=== PATIENT | male | born 1945 | race Caucasian/White ===

== ENCOUNTER → 2020-06-11 08:43 | Outpatient (CLI) | payer MEDICARE, OTHER, SELFPAY ==
[2020-06-11 10:29] LABS: T4 Free Direct 1.53 ng/dL (0.76-1.46); Thyroid Stim Hormone (TSH) 1.25 uIU/mL (0.358-3.74)
== END ==
PROVIDERS: PCP Internal Medicine; Referring Provider Internal Medicine; Visit Provider Internal Medicine
DX: I10 Essential (primary) hypertension (principal); E78.5 Hyperlipidemia, unspecified; E03.9 Hypothyroidism, unspecified; R73.9 Hyperglycemia, unspecified; J44.9 Chronic obstructive pulmonary disease, unspecified; Z13.9 Encounter for screening, unspecified; Z13.31 Encounter for screening for depression
CPT/HCPCS: 36415; 84439; 84443

== ENCOUNTER → 2020-08-12 09:57 | Outpatient (CLI) | payer MEDICARE, OTHER, SELFPAY ==
[2020-08-12 12:49] LABS: T4 Free Direct 1.44 ng/dL (0.76-1.46); Thyroid Stim Hormone (TSH) 2.97 uIU/mL (0.358-3.74)
== END ==
PROVIDERS: PCP Internal Medicine; Referring Provider Internal Medicine; Visit Provider Internal Medicine
DX: E03.9 Hypothyroidism, unspecified (principal)
CPT/HCPCS: 36415; 84439; 84443

== ENCOUNTER → 2020-12-03 07:54 | Outpatient (CLI) | payer MEDICARE, OTHER, SELFPAY ==
[2020-12-03 09:45] LABS: Absolute Lymphocyte Count 2.25 X10^3/uL (0.83-4.51); Absolute Neutrophil Count 3.6 X10^3/uL (2.0-7.7); Basophil# 0.03 X10^3/uL; Basophil% 0.5 % (0-1); Eosinophil# 0.22 X10^3/uL; Eosinophils% 3.3 % (0-5); Hematocrit 45.1 % (40-54); Hemoglobin 15.6 g/dL (13.0-16.5); Lymphocyte # 2.25 X10^3/ul (0.83-4.51); Lymphocyte % 33.8 % (19-41); Mean Corp Hgb Conc 34.6 g/dL (32-36); Mean Corpuscular Hgb 30.3 pg (27.0-32.0); Mean Corpuscular Volume 87.6 fL (80-94); Mean Platelet Vol. 9.3 fl (6.2-12.0); Monocyte# 0.51 X10^3/uL; Monocyte% 7.7 % (0-10); NRBC Flagged by Analyzer 0 % (0-5); Neutrophil # 3.62 X10^3/uL (2.7-7.7); Neutrophil % 54.4 % (47-70); Platelet Count 215 K/mm3 (150-450); RBC Distribution Width SD 38.5 fl (35.1-43.9); Red Blood Count 5.15 M/mm3 (4.6-6.2); White Blood Count 6.7 K/mm3 (4.4-11.0)
[2020-12-03 10:26] LABS: ALB/GLOB Ratio 1.2 RATIO (0.9-2.4); AST(SGOT) 13 U/L (15-37); Alanine Aminotransfer ALT/SGPT 33 U/L (16-61); Albumin, Serum 4.1 g/dL (3.2-5.0); Alkaline Phosphatase 76 U/L (45-117); Anion Gap 9 (5-15); BUN 15 mg/dL (7-18); BUN/Creat Ratio 16.5 RATIO (10-20); Calcium,Total 9.1 mg/dL (8.5-10.1); Chloride 101 mmol/L (98-107); Cholesterol 207 mg/dL (200); Creatinine, Serum 0.91 mg/dL (0.70-1.30); EST Glomerular Filtration Rate 87 mL/min (>60); Est Glom Filt Rate - Afr Amer 105 mL/min (>60); Globulin 3.5 g/dL (2.2-4.2); Glucose 99 mg/dL (74-106); High Density Lipoprotein 46 mg/dL; PSA,Total - Annual Screen 6.12 ng/mL (0.00-4.00); Potassium 3.9 mmol/L (3.5-5.1); Protein, Total 7.6 g/dL (6.4-8.2); Sodium Level 137 mmol/L (136-145); T4 Free Direct 1.19 ng/dL (0.76-1.46); Thyroid Stim Hormone (TSH) 8.29 uIU/mL (0.358-3.74); Triglycerides 184 mg/dL; Uric Acid 7.9 mg/dL (3.5-7.2); Very Low Density Lipoprotein 37 mg/dL (5-40)
[2020-12-03 11:39] LABS: Hemoglobin A1c 5.4 % (3.8-5.6)
== END ==
PROVIDERS: PCP Internal Medicine; Referring Provider Internal Medicine; Visit Provider Internal Medicine
DX: I10 Essential (primary) hypertension (principal); E78.5 Hyperlipidemia, unspecified; E03.9 Hypothyroidism, unspecified; R73.9 Hyperglycemia, unspecified; Z87.39 Personal history of other diseases of the musculoskeletal system and connective tissue; Z12.5 Encounter for screening for malignant neoplasm of prostate
CPT/HCPCS: 36415; 80053; 80061; 83036; 84153; 84439; 84443; 84550; 85025; G0103

== ENCOUNTER → 2021-03-13 09:31 | Outpatient (CLI) | payer MEDICARE, OTHER, SELFPAY ==
[2021-03-13 12:24] LABS: Free T3 2.5 pg/mL (2.18-3.98); PSA,Total- Diagnostic 4.74 ng/mL (0.0-4.0)
[2021-03-13 14:09] LABS: T4 Free Direct 1.11 ng/dL (0.76-1.46)
== END ==
PROVIDERS: PCP Internal Medicine; Referring Provider Internal Medicine; Visit Provider Internal Medicine
DX: E03.9 Hypothyroidism, unspecified (principal); J44.9 Chronic obstructive pulmonary disease, unspecified; I10 Essential (primary) hypertension; F17.200 Nicotine dependence, unspecified, uncomplicated; R73.9 Hyperglycemia, unspecified; E78.5 Hyperlipidemia, unspecified; R97.20 Elevated prostate specific antigen [PSA]; Z87.39 Personal history of other diseases of the musculoskeletal system and connective tissue; Z68.29 Body mass index [BMI] 29.0-29.9, adult; Z71.3 Dietary counseling and surveillance; Z71.82 Exercise counseling; Z13.9 Encounter for screening, unspecified; Z13.31 Encounter for screening for depression
CPT/HCPCS: 36415; 84153; 84439; 84443; 84481

== ENCOUNTER 2021-07-15 08:00 | Outpatient (CLI) | payer MEDICARE, OTHER, SELFPAY ==
[2021-07-15 10:07] LABS: Hematocrit 43.9 % (40-54); Hemoglobin 15.5 g/dL (13.0-16.5); Mean Corp Hgb Conc 35.3 g/dL (32-36); Mean Corpuscular Hgb 30.6 pg (27.0-32.0); Mean Corpuscular Volume 86.8 fL (80-94); Mean Platelet Vol. 9.1 fl (6.2-12.0); Platelet Count 208 K/mm3 (150-450); RBC Distribution Width CV 12.1 % (11.6-14.6); RBC Distribution Width SD 38.5 fl (35.1-43.9); Red Blood Count 5.06 M/mm3 (4.6-6.2)
[2021-07-15 10:33] LABS: AST(SGOT) 17 U/L (15-37); Alanine Aminotransfer ALT/SGPT 39 U/L (16-61); Alkaline Phosphatase 75 U/L (45-117); Anion Gap 10 (5-15); BUN 16 mg/dL (7-18); BUN/Creat Ratio 19.6 RATIO (10-20); Calcium,Total 9.3 mg/dL (8.5-10.1); Chloride 96 mmol/L (98-107); Cholesterol 204 mg/dL (200); Creatinine, Serum 0.82 mg/dL (0.70-1.30); EST Glomerular Filtration Rate 98 mL/min (>60); Est Glom Filt Rate - Afr Amer 118 mL/min (>60); Glucose 102 mg/dL (74-106); High Density Lipoprotein 42 mg/dL; PSA,Total- Diagnostic 4.63 ng/mL (0.0-4.0); Potassium 4.2 mmol/L (3.5-5.1); Sodium Level 136 mmol/L (136-145); T4 Free Direct 1.54 ng/dL (0.76-1.46); Triglycerides 238 mg/dL; Uric Acid 6.7 mg/dL (3.5-7.2); Very Low Density Lipoprotein 48 mg/dL (5-40)
== END 2021-07-15 23:59 | disposition short-term general hospital (02) ==
LOC: MTLAB 08:02
PROVIDERS: PCP Internal Medicine; Referring Provider Internal Medicine; Visit Provider Internal Medicine
DX: I10 Essential (primary) hypertension (principal); E78.5 Hyperlipidemia, unspecified; E03.9 Hypothyroidism, unspecified; R97.20 Elevated prostate specific antigen [PSA]; Z87.39 Personal history of other diseases of the musculoskeletal system and connective tissue
CPT/HCPCS: 36415; 80053; 80061; 84153; 84439; 84443; 84550; 85027

== ENCOUNTER → 2022-03-24 | Outpatient (CLI) | payer MEDICARE, OTHER, SELFPAY ==
[2022-03-24 09:57] LABS: Absolute Lymphocyte Count 1.68 X10^3/uL (0.83-4.51); Absolute Neutrophil Count 3.1 X10^3/uL (2.0-7.7); Basophil# 0.01 X10^3/uL; Basophil% 0.2 % (0-1); Eosinophil# 0.16 X10^3/uL; Eosinophils% 2.9 % (0-5); Hematocrit 44.6 % (40-54); Hemoglobin 15.4 g/dL (13.0-16.5); Lymphocyte # 1.68 X10^3/ul (0.83-4.51); Lymphocyte % 30.8 % (19-41); Mean Corp Hgb Conc 34.5 g/dL (32-36); Mean Corpuscular Hgb 29.8 pg (27.0-32.0); Mean Corpuscular Volume 86.3 fL (80-94); Mean Platelet Vol. 9.3 fl (6.2-12.0); Monocyte# 0.49 X10^3/uL; NRBC Flagged by Analyzer 0 % (0-5); Neutrophil % 56.9 % (47-70); Platelet Count 196 K/mm3 (150-450); RBC Distribution Width CV 11.9 % (11.6-14.6); Red Blood Count 5.17 M/mm3 (4.6-6.2); White Blood Count 5.5 K/mm3 (4.4-11.0)
[2022-03-24 10:14] LABS: Hemoglobin A1c 5.6 % (3.8-5.6)
[2022-03-24 10:33] LABS: ALB/GLOB Ratio 1.1 RATIO (0.9-2.4); AST(SGOT) 10 U/L (15-37); Alanine Aminotransfer ALT/SGPT 25 U/L (16-61); Albumin, Serum 3.8 g/dL (3.2-5.0); Alkaline Phosphatase 75 U/L (45-117); Anion Gap 5 (5-15); BUN 16 mg/dL (7-18); BUN/Creat Ratio 18.8 RATIO (10-20); Calcium,Total 9.2 mg/dL (8.5-10.1); Chloride 103 mmol/L (98-107); Cholesterol 194 mg/dL (200); Creatinine, Serum 0.85 mg/dL (0.70-1.30); EST Glomerular Filtration Rate 93 mL/min (>60); Est Glom Filt Rate - Afr Amer 113 mL/min (>60); Globulin 3.4 g/dL (2.2-4.2); Glucose 108 mg/dL (74-106); High Density Lipoprotein 42 mg/dL; PSA,Total - Annual Screen 3.79 ng/mL (0.00-4.00); Potassium 4.1 mmol/L (3.5-5.1); Protein, Total 7.2 g/dL (6.4-8.2); Sodium Level 137 mmol/L (136-145); T4 Free Direct 1.62 ng/dL (0.76-1.46); Thyroid Stim Hormone (TSH) 0.95 uIU/mL (0.358-3.74); Triglycerides 193 mg/dL; Very Low Density Lipoprotein 39 mg/dL (5-40)
== END | disposition home or self-care (01) ==
LOC: MTLAB 08:22
PROVIDERS: PCP Internal Medicine; Referring Provider Internal Medicine; Visit Provider Internal Medicine
DX: Z00.00 Encounter for general adult medical examination without abnormal findings (principal); J44.9 Chronic obstructive pulmonary disease, unspecified; R10.13 Epigastric pain; R97.20 Elevated prostate specific antigen [PSA]; I10 Essential (primary) hypertension; E78.5 Hyperlipidemia, unspecified; R73.9 Hyperglycemia, unspecified; E03.9 Hypothyroidism, unspecified; Z12.5 Encounter for screening for malignant neoplasm of prostate; Z13.31 Encounter for screening for depression; Z68.29 Body mass index [BMI] 29.0-29.9, adult; Z71.3 Dietary counseling and surveillance; Z71.82 Exercise counseling; Z72.0 Tobacco use
CPT/HCPCS: 36415; 80053; 80061; 83036; 84153; 84439; 84443; 85025; G0103

== ENCOUNTER → 2022-06-02 | Outpatient (CLI) | payer MEDICARE, OTHER, SELFPAY ==
[2022-06-02 15:34] LABS: T4 Free Direct 1.45 ng/dL (0.76-1.46); Thyroid Stim Hormone (TSH) 1.51 uIU/mL (0.358-3.74)
== END | disposition home or self-care (01) ==
LOC: MTLAB 11:09
PROVIDERS: PCP Internal Medicine; Referring Provider Internal Medicine; Visit Provider Internal Medicine
DX: E03.9 Hypothyroidism, unspecified (principal)
CPT/HCPCS: 36415; 84439; 84443

== ENCOUNTER → 2022-09-22 | Outpatient (CLI) | payer MEDICARE, OTHER, SELFPAY ==
[2022-09-22 10:34] LABS: ALB/GLOB Ratio 1.2 RATIO (0.9-2.4); AST(SGOT) 14 U/L (15-37); Alanine Aminotransfer ALT/SGPT 27 U/L (16-61); Alkaline Phosphatase 63 U/L (45-117); Anion Gap 7 (5-15); BUN 18 mg/dL (7-18); BUN/Creat Ratio 18.6 RATIO (10-20); Calcium,Total 9.1 mg/dL (8.5-10.1); Chloride 101 mmol/L (98-107); Cholesterol 217 mg/dL (200); Creatinine, Serum 0.97 mg/dL (0.70-1.30); EST Glomerular Filtration Rate 80 mL/min (>60); Est Glom Filt Rate - Afr Amer 97 mL/min (>60); Globulin 3.2 g/dL (2.2-4.2); Glucose 104 mg/dL (74-106); High Density Lipoprotein 43 mg/dL; Potassium 4.1 mmol/L (3.5-5.1); Protein, Total 7.2 g/dL (6.4-8.2); Sodium Level 137 mmol/L (136-145); T4 Free Direct 1.03 ng/dL (0.76-1.46); Thyroid Stim Hormone (TSH) 8.34 uIU/mL (0.358-3.74); Triglycerides 213 mg/dL; Very Low Density Lipoprotein 43 mg/dL (5-40)
== END | disposition home or self-care (01) ==
LOC: MTLAB 08:41
PROVIDERS: PCP Internal Medicine; Referring Provider Internal Medicine; Visit Provider Internal Medicine
DX: E78.5 Hyperlipidemia, unspecified (principal); E03.9 Hypothyroidism, unspecified
CPT/HCPCS: 36415; 80053; 80061; 84439; 84443

== ENCOUNTER → 2022-12-14 | Outpatient (CLI) | payer MEDICARE, OTHER, SELFPAY ==
[2022-12-14 15:46] LABS: T4 Free Direct 1.28 ng/dL (0.76-1.46); Thyroid Stim Hormone (TSH) 3.76 uIU/mL (0.358-3.74)
== END | disposition home or self-care (01) ==
LOC: MTLAB 13:02
PROVIDERS: PCP Internal Medicine; Referring Provider Internal Medicine; Visit Provider Internal Medicine
DX: E03.9 Hypothyroidism, unspecified (principal)
CPT/HCPCS: 36415; 84439; 84443

== ENCOUNTER → 2023-05-18 | Outpatient (CLI) | payer MEDICARE, OTHER, SELFPAY ==
[2023-05-18 12:45] LABS: Absolute Lymphocyte Count 1.75 X10^3/uL (0.83-4.51); Absolute Neutrophil Count 4.1 X10^3/uL (2.0-7.7); Basophil# 0.03 X10^3/uL; Basophil% 0.5 % (0-1); Eosinophil# 0.18 X10^3/uL; Eosinophils% 2.7 % (0-5); Hematocrit 45.7 % (40-54); Hemoglobin 15.7 g/dL (13.0-16.5); Lymphocyte # 1.75 X10^3/ul (0.83-4.51); Lymphocyte % 26.4 % (19-41); Mean Corp Hgb Conc 34.4 g/dL (32-36); Mean Corpuscular Hgb 30.1 pg (27.0-32.0); Mean Corpuscular Volume 87.7 fL (80-94); Mean Platelet Vol. 9.5 fl (6.2-12.0); Monocyte# 0.56 X10^3/uL; Monocyte% 8.4 % (0-10); NRBC Flagged by Analyzer 0 % (0-5); Neutrophil # 4.09 X10^3/uL (2.7-7.7); Neutrophil % 61.7 % (47-70); Platelet Count 221 K/mm3 (150-450); RBC Distribution Width SD 38.6 fl (35.1-43.9); Red Blood Count 5.21 M/mm3 (4.6-6.2); White Blood Count 6.6 K/mm3 (4.4-11.0)
[2023-05-18 13:35] LABS: ALB/GLOB Ratio 1.2 RATIO (0.9-2.4); AST(SGOT) 18 U/L (15-37); Alanine Aminotransfer ALT/SGPT 39 U/L (16-61); Alkaline Phosphatase 63 U/L (45-117); Anion Gap 7 (5-15); BUN 15 mg/dL (7-18); BUN/Creat Ratio 15.6 RATIO (10-20); Chloride 103 mmol/L (98-107); Cholesterol 221 mg/dL (200); Creatinine, Serum 0.96 mg/dL (0.70-1.30); EST Glomerular Filtration Rate 81 mL/min (>60); Est Glom Filt Rate - Afr Amer 98 mL/min (>60); Globulin 3.4 g/dL (2.2-4.2); Glucose 108 mg/dL (74-106); High Density Lipoprotein 40 mg/dL; Potassium 4.1 mmol/L (3.5-5.1); Protein, Total 7.4 g/dL (6.4-8.2); Sodium Level 139 mmol/L (136-145); Thyroid Stim Hormone (TSH) 1.93 uIU/mL (0.358-3.74); Triglycerides 224 mg/dL; Uric Acid 8.6 mg/dL (3.5-7.2); Very Low Density Lipoprotein 45 mg/dL (5-40)
[2023-05-18 13:36] LABS: Hemoglobin A1c 5.4 % (3.8-5.6)
== END | disposition home or self-care (01) ==
LOC: MTLAB 09:22
PROVIDERS: PCP Internal Medicine; Referring Provider Internal Medicine; Visit Provider Internal Medicine
DX: I10 Essential (primary) hypertension (principal); E78.5 Hyperlipidemia, unspecified; R73.9 Hyperglycemia, unspecified; Z87.39 Personal history of other diseases of the musculoskeletal system and connective tissue
CPT/HCPCS: 36415; 80053; 80061; 83036; 84443; 84550; 85025

== ENCOUNTER → 2024-02-22 | Outpatient (CLI) | payer MEDICARE, SELFPAY ==
[2024-02-22 10:37] LABS: Absolute Lymphocyte Count 1.86 X10^3/uL (0.83-4.51); Absolute Neutrophil Count 4.3 X10^3/uL (2.0-7.7); Basophil# 0.02 X10^3/uL; Basophil% 0.3 % (0-1); Eosinophil# 0.18 X10^3/uL; Eosinophils% 2.6 % (0-5); Hematocrit 44.4 % (40-54); Hemoglobin 15.3 g/dL (13.0-16.5); Lymphocyte # 1.86 X10^3/ul (0.83-4.51); Lymphocyte % 27.2 % (19-41); Mean Corp Hgb Conc 34.5 g/dL (32-36); Mean Corpuscular Hgb 30.3 pg (27.0-32.0); Mean Corpuscular Volume 87.9 fL (80-94); Mean Platelet Vol. 9.3 fl (6.2-12.0); Monocyte# 0.51 X10^3/uL; Monocyte% 7.4 % (0-10); NRBC Flagged by Analyzer 0 % (0-5); Neutrophil # 4.26 X10^3/uL (2.7-7.7); Neutrophil % 62.2 % (47-70); Platelet Count 206 K/mm3 (150-450); RBC Distribution Width CV 12.1 % (11.6-14.6); RBC Distribution Width SD 39.4 fl (35.1-43.9); Red Blood Count 5.05 M/mm3 (4.6-6.2); White Blood Count 6.9 K/mm3 (4.4-11.0)
[2024-02-22 12:42] LABS: ALB/GLOB Ratio 1.1 RATIO (0.9-2.4); AST(SGOT) 16 U/L (15-37); Alanine Aminotransfer ALT/SGPT 30 U/L (16-61); Albumin, Serum 3.7 g/dL (3.2-5.0); Alkaline Phosphatase 70 U/L (45-117); Anion Gap 6 (5-15); BUN 14 mg/dL (7-18); BUN/Creat Ratio 14.4 RATIO (10-20); Calcium,Total 9.1 mg/dL (8.5-10.1); Chloride 103 mmol/L (98-107); Cholesterol 186 mg/dL (200); Creatinine, Serum 0.97 mg/dL (0.70-1.30); EST Glomerular Filtration Rate 80 mL/min (>60); Est Glom Filt Rate - Afr Amer 97 mL/min (>60); Globulin 3.4 g/dL (2.2-4.2); Glucose 91 mg/dL (74-106); High Density Lipoprotein 42 mg/dL; PSA,Total - Annual Screen 5.27 ng/mL (0.00-4.00); Protein, Total 7.1 g/dL (6.4-8.2); Sodium Level 135 mmol/L (136-145); Thyroid Stim Hormone (TSH) 0.805 uIU/mL (0.358-3.740); Triglycerides 139 mg/dL; Very Low Density Lipoprotein 28 mg/dL (5-40)
[2024-02-22 14:09] LABS: Hemoglobin A1c 5.5 % (3.8-5.6)
== END | disposition home or self-care (01) ==
LOC: MTLAB 08:28
PROVIDERS: PCP Internal Medicine; Referring Provider Internal Medicine; Visit Provider Internal Medicine
DX: I10 Essential (primary) hypertension (principal); E78.5 Hyperlipidemia, unspecified; R73.9 Hyperglycemia, unspecified; Z12.5 Encounter for screening for malignant neoplasm of prostate; E03.9 Hypothyroidism, unspecified
CPT/HCPCS: 36415; 80053; 80061; 83036; 84153; 84443; 85025; G0103

== ENCOUNTER → 2024-08-22 | Outpatient (CLI) | payer MEDICARE, SELFPAY ==
[2024-08-22 10:35] LABS: Absolute Lymphocyte Count 1.64 X10^3/uL (0.83-4.51); Absolute Neutrophil Count 4.2 X10^3/uL (2.0-7.7); Basophil# 0.01 X10^3/uL; Basophil% 0.2 % (0-1); Eosinophil# 0.14 X10^3/uL; Eosinophils% 2.2 % (0-5); Glucose, Dipstick Normal (Normal); Hematocrit 45.2 % (40-54); Hemoglobin 15.7 g/dL (13.0-16.5); Ketone-Dipstick Negative (Negative); Leukocyte Esterase-Dipstick 25 /ul (Negative); Lymphocyte # 1.64 X10^3/ul (0.83-4.51); Lymphocyte % 25.3 % (19-41); Mean Corp Hgb Conc 34.7 g/dL (32-36); Mean Corpuscular Hgb 30.7 pg (27.0-32.0); Mean Corpuscular Volume 88.5 fL (80-94); Mean Platelet Vol. 8.8 fl (6.2-12.0); Monocyte# 0.51 X10^3/uL; Monocyte% 7.9 % (0-10); NRBC Flagged by Analyzer 0 % (0-5); Neutrophil # 4.17 X10^3/uL (2.7-7.7); Neutrophil % 64.2 % (47-70); Nitrite-Dipstick Negative (Negative); Occult Blood-Urine 10 /ul (Negative); Platelet Count 228 K/mm3 (150-450); Protein-Dipstick 15 mg/dl (Negative); RBC Distribution Width CV 11.9 % (11.6-14.6); RBC Distribution Width SD 38.5 fl (35.1-43.9); Red Blood Count 5.11 M/mm3 (4.6-6.2); Specific Gravity, Urine 1.015 (1.002-1.030); Urine Bilirubin Dipstick Negative (Negative); Urine Clarity Clear (Clear); Urine Urobilinogen Normal (Normal); White Blood Count 6.5 K/mm3 (4.4-11.0)
[2024-08-22 10:40] LABS: Color, Urine Yellow (Yellow)
[2024-08-22 11:25] LABS: ALB/GLOB Ratio 1.2 RATIO (0.9-2.4); AST(SGOT) 10 U/L (15-37); Alanine Aminotransfer ALT/SGPT 27 U/L (16-61); Albumin, Serum 4.1 g/dL (3.2-5.0); Alkaline Phosphatase 72 U/L (45-117); Anion Gap 9 (5-15); BUN 15 mg/dL (7-18); Calcium,Total 9.2 mg/dL (8.5-10.1); Chloride 99 mmol/L (98-107); Cholesterol 197 mg/dL (200); Creatinine, Serum 0.94 mg/dL (0.70-1.30); EST Glomerular Filtration Rate 83 mL/min (>60); Est Glom Filt Rate - Afr Amer 100 mL/min (>60); Globulin 3.3 g/dL (2.2-4.2); Glucose 103 mg/dL (74-106); High Density Lipoprotein 49 mg/dL; Potassium 4.2 mmol/L (3.5-5.1); Protein, Total 7.4 g/dL (6.4-8.2); Sodium Level 135 mmol/L (136-145); Thyroid Stim Hormone (TSH) 0.629 uIU/mL (0.358-3.740); Triglycerides 161 mg/dL; Very Low Density Lipoprotein 32 mg/dL (5-40)
[2024-08-22 12:13] LABS: Hemoglobin A1c 5.4 % (3.8-5.6)
[2024-08-23 13:08] LABS: PSA, Free 0.91 ng/mL; PSA, Free % 18.1 % (.)
== END | disposition home or self-care (01) ==
LOC: MTLAB 08:55
PROVIDERS: PCP Internal Medicine; Referring Provider Internal Medicine; Visit Provider Internal Medicine
DX: I10 Essential (primary) hypertension (principal); E78.5 Hyperlipidemia, unspecified; E03.9 Hypothyroidism, unspecified; R73.9 Hyperglycemia, unspecified; R97.20 Elevated prostate specific antigen [PSA]
CPT/HCPCS: 36415; 80053; 80061; 81002; 83036; 84153; 84154; 84443; 85025

== ENCOUNTER → 2025-02-27 | Outpatient (CLI) | payer MEDICARE, SELFPAY ==
[2025-02-27 16:22] LABS: Hematocrit 44.0 % (40-54); Hemoglobin 15.6 g/dL (13.0-16.5); Immature Granulocytes Count 0.020 X10^3/uL (0.0-0.0); Mean Corp Hgb Conc 35.5 g/dL (32-36); Mean Corpuscular Volume 86.6 fL (80-94); Mean Platelet Vol. 9.0 fl (6.2-12.0); NRBC Flagged by Analyzer 0 % (0-5); Platelet Count 203 K/mm3 (150-450); RBC Distribution Width CV 11.7 % (11.6-14.6); RBC Distribution Width SD 37.4 fl (35.1-43.9); Red Blood Count 5.08 M/mm3 (4.6-6.2); White Blood Count 7.8 K/mm3 (4.4-11.0)
[2025-02-27 18:10] LABS: AST(SGOT) 18 U/L (<=37); Alanine Aminotransfer ALT/SGPT 19 U/L (<=46); Albumin, Serum 4.7 g/dL (3.4-4.8); Alkaline Phosphatase 69 U/L (40-129); Anion Gap 17 (5-15); BUN 15 mg/dL (4-19); BUN/Creat Ratio 18.8 RATIO (10-20); Calcium,Total 9.6 mg/dL (7.6-11.0); Carbon Dioxide 22.1 mmol/L (21.0-32.0); Chloride 94 mmol/L (98-108); Cholesterol 194 mg/dL (<=200); Globulin 2.5 g/dL (2.2-4.2); Glucose 92 mg/dL (70-99); Hepatitis C Antibody Nonreactive (Nonreactive); Low Density Lipoprotein Calc. 107 mg/dL; Potassium 4.4 mmol/L (3.3-5.1); Triglycerides 176 mg/dL; Very Low Density Lipoprotein 35 mg/dL (5-40); Vitamin D,25 Hydroxy 35.8 ng/mL (30-100); cholesterol:hdl ratio screen 3.74
[2025-02-27 23:55] LABS: Xtra Tube Kwok EXTRA TUBE
== END | disposition home or self-care (01) ==
LOC: LAB 15:53
PROVIDERS: PCP Internal Medicine; Referring Provider Family Medicine Geriatric Medicine; Visit Provider Family Medicine Geriatric Medicine
DX: E78.5 Hyperlipidemia, unspecified (principal); I10 Essential (primary) hypertension; E55.9 Vitamin D deficiency, unspecified
CPT/HCPCS: 36415; 80053; 80061; 82306; 84443; 85025; 86803

== ENCOUNTER → 2025-03-09 | Outpatient (CLI) | payer MEDICARE, SELFPAY ==
--- NOTE | 2025-03-09 08:53 | AAAS_ITS ---
Reason For Study Reason For Study: Screening Aorta Measurements Aorta Doppler Measurements Proximal aorta measures2.39 x 2.36cm. in cross-sectional Peak systolic flow velocities within the proximal aorta axis. measure 90.4 cm/sec. Proximal aorta measures2.38cm. in longitudinal axis. Peak systolic flow velocities within the mid aorta measure Mid aorta measures1.67 x 1.56cm. in cross-sectional axis. 83.2 cm/sec. Mid aorta measures1.55cm. in longitudinal axis. Peak systolic flow velocities within the distal aorta Distal aorta measures1.62 x 1.62cm. in cross-sectional axis.measure 106.7 cm/sec. Distal aorta measures1.62cm. in longitudinal axis. Left Iliac Artery Left iliac artery measures 0.90 x 0.91 cm. in the cross-sectional axis. Left iliac artery measures 0.96 cm. in the longitudinal axis. Peak systolic velocity in the left iliac artery measures 120.5 cm/sec. Right Iliac Artery Right iliac artery measures 0.95 x 0.94 cm. in the cross-sectional axis. Right iliac artery measures 0.94 cm. in the longitudinal axis. Peak systolic velocity in the right iliac artery measures 120.5 cm/sec. Procedure Aorta IVC Iliac vasculature or bypass grafts [id number]. Exam performed in department. VL/AAA Screening Interpretation Summary The dimensions of the intra-abdominal aorta appear normal, without evidence of aneurysmal dilatation. The iliac arteries also appear normal in caliber bilaterally. The intra-abdominal aorta and iliac arteries appear patent, demonstrating normal, pulsatile arterial flow and normal peak systolic velocities. Ordering Physician: Dominik Lee Chi Referring Physician: Dominik Lee Chi Performed By: Letha Dunaway RVT and Student
== END | disposition home or self-care (01) ==
LOC: CVS 08:52
PROVIDERS: PCP Family Medicine Geriatric Medicine; Referring Provider Family Medicine Geriatric Medicine; Visit Provider Family Medicine Geriatric Medicine
DX: I71.40 Abdominal aortic aneurysm, without rupture, unspecified (principal)
CPT/HCPCS: 76706

== ENCOUNTER → 2025-05-08 | Outpatient (CLI) | payer MEDICARE, SELFPAY ==
[2025-05-08 15:02] LABS: Hematocrit 42.5 % (40-54); Hemoglobin 15.1 g/dL (13.0-16.5); Mean Corp Hgb Conc 35.5 g/dL (32-36); Mean Corpuscular Volume 86.6 fL (80-94); Mean Platelet Vol. 8.9 fl (6.2-12.0); Platelet Count 193 K/mm3 (150-450); RBC Distribution Width CV 11.8 % (11.6-14.6); RBC Distribution Width SD 37.5 fl (35.1-43.9); Red Blood Count 4.91 M/mm3 (4.6-6.2); White Blood Count 8.2 K/mm3 (4.4-11.0)
[2025-05-08 15:36] LABS: Anion Gap 12 (5-15); BUN 16 mg/dL (4-19); BUN/Creat Ratio 21.5 RATIO (10-20); Calcium,Total 9.8 mg/dL (7.6-11.0); Carbon Dioxide 24.3 mmol/L (21.0-32.0); Chloride 95 mmol/L (98-108); Glucose 103 mg/dL (70-99); Potassium 4.3 mmol/L (3.3-5.1)
== END | disposition home or self-care (01) ==
LOC: LAB 14:43
PROVIDERS: PCP Family Medicine Geriatric Medicine; Referring Provider Urology; Visit Provider Urology
DX: Z01.812 Encounter for preprocedural laboratory examination (principal)
CPT/HCPCS: 36415; 80048; 85027

== ENCOUNTER 2025-05-23 09:34 | Observation (INO) | payer MEDICARE, SELFPAY ==
--- NOTE | 2025-05-11 08:09 | EKG12_ITS ---
Test Reason : PREOP Blood Pressure : */* mmHG Vent. Rate : 85 BPM Atrial Rate : 85 BPM P-R Int : 198 ms QRS Dur : 138 ms QT Int : 374 ms P-R-T Axes : 60 32 23 degrees QTcB Int : 445 ms Sinus rhythm with Possible Premature atrial complexes with Aberrant conduction Right bundle branch block Abnormal ECG When compared with ECG of 14-Jul-2011 10:23, Aberrant conduction is now Present Right bundle branch block is now Present Confirmed by Dat Abla ([id number]), food expeditor CRIS SNEED ([id number]) on 05/14/2025 1:08:57 PM Referred By: CORRINE Confirmed By: Dat Alba
--- NOTE | 2025-05-21 17:05 | PAT.ANE_ITS ---
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 When Was Last Pacemaker Check QUESTION #4 FULL TEXT: You/Your Family Experience fever (hyperthermia) with Anesthesia Last Oral Intake Last Oral intake: Last Oral Intake NPO since Meds taken in AM with sips of water? Meds patient instructed to take am of surgery PONV PONV - wastewater treatment engineer: PONV - wastewater treatment engineer Female No 05/21/25 08:28 HX of Motion Sickness No 05/21/25 08:28 HX of N/V After Surgery No 05/21/25 08:28 Non-Smoker No 05/21/25 08:28 Duration of Surgery greater Yes 05/21/25 08:28 than 60 minutes Number of Risk Factors 1 05/21/25 08:28 PONV Score Low Risk 05/21/25 08:28 Respiratory Assessment Respiratory Assessment - wastewater treatment engineer: Respiratory Tract Infection Hx - wastewater treatment engineer Hx Respiratory Tract Infection No 05/21/25 08:28 STOP Sleep Apnea STOP Sleep Apnea - wastewater treatment engineer: STOP Sleep Apnea - wastewater treatment engineer Hx Hypertension Yes: CONTROLLED WITH MED 05/21/25 08:28 Hx Sleep Apnea No 05/21/25 08:28 CPAP BIPAP Do you snore loudly (louder No 05/21/25 08:28 than talking or can be heard Do you often feel tired/ No 05/21/25 08:28 fatigued/ sleepy during daytime? Has anyone observed you stop No 05/21/25 08:28 breathing during sleep? STOP Results Negative 05/21/25 08:28 QUESTION #5 FULL TEXT : Do you snore loudly (louder than talking or can be heard through closed doors)? 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 Specify any problems Hx of Preganancy in last 3 N/A 05/21/25 08:28 Months Nurse Filling Out Transfusion DSCHRIBER 05/21/25 08:28 & Questions: Date: 05/21/25 05/21/25 08:28 Time: 08:05/21/25 08:28 Patient unable to answer at this time (ie. confused, unrespo /Reproduction History /Reproductive History - wastewater treatment engineer: /Reproductive Hx- wastewater treatment engineer Hx Now No 05/21/25 08:28 Gestational Age (in weeks): EDC: Hx Hx Para Hx Section SAB No 05/21/25 08:28 Does the father of the baby or his family experience fever w Father of the baby Malignant Hypertension history comment [facility] Medical History (Updated 05/21/25 @ 08:42 by Suha Wei) Wears glasses Alcohol use Hx of Bj thyroiditis Thyroid disease Arthritis Prostate disease Restless legs Back pain Gastric reflux COPD (chronic obstructive pulmonary disease) Smoker Hypertension Home Medications ?Medication ?Instructions ?Recorded ?Last Taken ?Type ascorbic acid (vitamin C) 1,000 mg 1,000 mg PO DAILY 1 07/21/24 Unknown History tablet,extended release (Vitamin C ER) budesonide-formoterol HFA 160 2 puff inhalation BID Unknown History mcg-4.5 mcg/actuation aerosol inhaler (Symbicort) dutasteride 0.5 mg capsule 0.5 mg PO QHS 05/21/25 Unkn own History latanoprost 0.005 % eye drops 1 drp LEFT EYE QHS 05/21 Unknown History levothyroxine 150 mcg tablet 150 mcg PO QODAY 05/21/25 Unknown History (Synthroid) levothyroxine 175 mcg tablet 175 mcg PO QODAY 05/21/25 Unknown History (Synthroid) lisinopril 10 1 tab PO DAILY 05/21/25 Unkn own History mg-hydrochlorothiazide 12.5 mg tablet pantoprazole 40 mg tablet,delayed 40 mg PO QHS 5 Unknown History release tamsulosin 0.4 mg capsule 0.4 mg PO QHS 05/21/25 Unkno wn History Allergy/AdvReac Type Severity Reaction Status Date / Time amoxicillin AdvReac Severe Diarrhea Verified 05/21/25 08:23 clavulanic acid AdvReac Severe Diarrhea Verified 05/21/25 08:23 Surgical History (Updated 05/21/25 @ 08:42 by Suha Wei) Hx of colonoscopy History of esophagogastroduodenoscopy (EGD) History of cystoscopy History of cystoscopy History of thyroid surgery Hx of arthroscopic knee surgery Hx of inguinal hernia surgery Hx of vasectomy Hx of tonsillectomy Social History Smoking Status: Current every day smoker tobacco type: cigarettes Audit: Pertinent Findings Pertinent Findings EKG Perinent findings: May 11, 2025. Sinus rhythm with possible PACs with aberrant conduction. Right bundle branch block. Recommendation Anesthesia Recommendation Anesthesia recommendation: OPTIMIZED for anesthesia
[2025-05-23] VITALS (16 sets, daily range): BP systolic 111–144; BP diastolic 55–94; PULSE 77–105; RESP 16–20; TEMP 36.1–36.9; O2SAT 92–100; BMI 26.4
--- OUTSIDE RECORDS SUMMARY | 2025-05-23 06:36 | XMS RPT_ITS | CCD ---
Author Organization [facility] Care Team Providers Care Bucket Hooker Name Role Phone Garrett Delaney Primary Care Provider GARRETT DELANEY MD Primary Care Unavailable LATOUF, GARRETT COLÓN Admitting Unavailable LATOUF, GARRETT COLÓN Attending Unavailable LATOUF, GARRETT COLÓN Consulting Unavailable PROVIDER, UNKNOWN Consulting Unavailable PROVIDER, UNKNOWN Consulting Unavailable PROVIDER, UNKNOWN Consulting Unavailable LATOUEmanuel, GARRETT COLÓN Primary Care Unavailable LATOUF, GARRETT COLÓN Admitting Unavailable LATOUF, GARRETT COLÓN Attending Unavailable LATOUF, GARRETT COLÓN Consulting Unavailable PROVIDER, UNKNOWN Consulting Unavailable PROVIDER, UNKNOWN Consulting Unavailable PROVIDER, UNKNOWN Consulting Unavailable LATOUF, GARRETT COLÓN Primary Care Unavailable LATOUF, GARRETT COLÓN Admitting Unavailable LATOUF, GARRETT COLÓN Attending Unavailable LATOUF, GARRETT COLÓN Consulting Unavailable PROVIDER, UNKNOWN Consulting Unavailable PROVIDER, UNKNOWN Consulting Unavailable PROVIDER, UNKNOWN Consulting Unavailable LATOUEmanuel, GARRETT COLÓN Primary Care Unavailable LATOUEmanuel, GARRETT COLÓN Admitting Unavailable LATOUF, GARRETT COLÓN Attending Unavailable LATOUF, GARRETT COLÓN Consulting Unavailable PROVIDER, UNKNOWN Consulting Unavailable PROVIDER, UNKNOWN Consulting Unavailable PROVIDER, UNKNOWN Consulting Unavailable LATOUF, GARRETT COLÓN Consulting Unavailable LATOUF, GARRETT COLÓN Primary Care Unavailable LATOUF, GARRETT COLÓN Admitting Unavailable LATOUF, GARRETT COLÓN Attending Unavailable PROVIDER, UNKNOWN Consulting Unavailable PROVIDER, UNKNOWN Consulting Unavailable PROVIDER, UNKNOWN Consulting Unavailable Rhett COLÓN, Dr. Jade Primary Care Provider Jesus COLÓN, Dr. Dominik Rios Attending Provider [phone] Jesus COLÓN, Dr. Dominik Rios Referring Provider [phone] Jesus COLÓN, Dr. Dominik Rios Primary Care Provider [phone] Rhett COLÓN, Dr. Jade Primary Care Physician [phone] Jesus COLÓN, Dr. Dominik Rios Attending Physician Jesus COLÓN, Dr. Dominik Rios Primary Care Physician Adilene COLÓN, Dr. Maximo Fernandez Attending Physician Latouemanuel, Butros Referring Unavailable Latouf, Butros Primary Care Unavailable Latouf, Butros Attending Unavailable Jesus, Dominik Chi Attending Unavailable Jesus, Dominik Chi Referring Unavailable Latouf, Butros Primary Care Unavailable Jesus, Dominik Chi Primary Care Unavailable Jesus, Dominik Chi Attending Unavailable Jesus, Dominik Chi Referring Unavailable Jesus, Dominik Chi Primary Care Unavailable Corrine, Luc Attending Unavailable Corrine, Luc Referring Unavailable Jesus, Dominik Chi Primary Care Unavailable Corrine, Luc Attending Unavailable Jesus, Dominik Chi Primary Care Unavailable Jesus, Dominik Chi Attending Unavailable Allergies Allergy Classification Reported Allergen(s) Allergy Type Date of Onset Reaction(s) Facility (1 source) Clavulanate Drug Allergy 03-11-2019 [place], [place] (1 source) Clavulanate Drug Allergy [facility] Repository Medications Current Medications Medication Drug Class(es) Dates Sig (Normalized) Sig (Original) acetaminophen 325 mg oral tablet (1 source) Start: 03-11-2019 650 mg, Oral, EVERY 4 HOURS PRN, Fever, For temp greater than 100.5 F (38 C), Starting 03/11/19 at 2316 Maximum dose of acetaminophen is 4000 mg from all sources in 24 hours. ascorbic acid 500 mg oral tablet (1 source) Vitamin C take 2 tablets by mouth once daily vitamin C (ASCORBIC ACID) 500 MG tablet Take 1,000 mg by mouth daily 0 Active aspirin 81 mg chewable tablet (2 sources) Platelet Aggregation Inhibitor, Nonsteroidal Anti-inflammatory Drug Start: 03-12-2019 take 81 mg by mouth once daily 81 mg, Oral, DAILY, First dose on 03/12/19 at 0900 take 1 tablet by mouth once priya y aspirin 81 MG tablet Take 81 mg by mouth daily 0 Active clindamycin 300 mg oral capsule (1 source) Lincosamide Antibacterial Start: 03-13-2019 End: 03-20-2019 take 1 capsule by mouth three times daily clindamycin (CLEOCIN) 300 MG capsule Take 1 capsule by mouth 3 times daily for 7 days 21 capsule 0 03/13/2019 03/20/2019 Active 0.4 ml enoxaparin sodium 100 mg/ml prefilled syringe (1 source) Low Molecular Weight Heparin Start: 03-12-2019 inject 40 mg by subcutaneous injection once daily 40 mg, Subcutaneous, DAILY, First dose on 03/12/19 at 0900 levothyroxine (2 sources) l-Thyroxine Start: 03-12-2019 take 175 ug by mouth once daily 175 mcg, Oral, DAILY, First dose on 03/12/19 at 0700 Tube feeding (TF) interaction, obtain physician order to manage, recommend holding TF for 30 minutes before and after dose. take 1 tablet by mouth once priya y levothyroxine (SYNTHROID) 175 MCG tablet Take 175 mcg by mouth Daily 0 Active lisinopril 10 mg oral tablet (2 sources) Angiotensin Converting Enzyme Inhibitor Start: 03-12-2019 take 10 mg by mouth once daily 10 mg, Oral, DAILY, First dose on 03/12/19 at 0900 magnesium hydroxide 80 mg/ml oral suspension (1 source) Start: 03-11-2019 take 30 mL by mouth once daily as needed for constipation 30 mL, Oral, DAILY PRN, Constipation, Starting 03/11/19 at 2315 First line therapy for constipation. Multiple Vitamins-Minerals (THERAPEUTIC MULTIVITAMIN-AEROBICS INSTRUCTOR ALS) tablet (1 source) take 1 tablet by mouth once daily Multiple Vitamins-Minera ls (THERAPEUTIC MULTIVITAMIN-ID NERALS) tablet Take 1 tablet by mouth daily 0 Active 2 ml ondansetron 2 mg/ml injection (1 source) Serotonin-3 Receptor Antagonist Start: 03-11-2019 4 mg, Intravenous, EVERY 6 HOURS PRN, Nausea, Starting 03/11/19 at 2315 3 ml sodium chloride 9 mg/ml injection (2 sources) Start: 03-11-2019 10 mL, Intravenous, EVERY 12 HOURS SCHEDULED (2 times per day), First dose on 03/11/19 at 2345 Start: 03-11-2019 take 10 mL intraveno us route once as needed 10 mL, Intravenous, PRN, Line Care, After every IV line use, Starting 03/11/19 at 2315 vitamin b 12 1 mg oral table t (1 source) Vitamin B12 vitamin B-12 (CY ANOCOBALAMIN) 1000 MCG tablet Take 2,500 mcg by mouth daily 0 Active Completed/Discontinued Medications Medication Drug Class(es) Dates Sig (Normalized) Sig (Original) amoxicillin 875 mg / clavulanate 125 mg oral tablet (1 source) Penicillin-class Antibacterial Start: 03-13-2019 End: 03-13-2019 take 1 tablet by mouth twice daily amoxicillin-clavul anate (AUGMENTIN) 875-125 MG per tablet Take 1 tablet by mouth 2 times daily for 8 days 16 tablet 0 03/13/2019 03/13/2019 Discontinued (Stop Taking at Discharge) piperacillin 3000 mg / tazobactam 375 mg injection (1 source) Penicillin-class Antibacterial, beta Lactamase Inhibitor Start: 03-12-2019 3.375 g, Intravenous, EVERY 8 HOURS, First dose on 03/12/19 at 0000, Until Discontinued Problems Active Problems Problem Classification Problem Date Documented Da te Episodic/Chronic Diabetes mellitus without complication (1 source) Hyperglycemia, unspecified; Translations: [Hyperglycemia, unspecified] Onset: 09-03-2024 Episodic Disorders of lipid metabolism (3 sources) Hyperlipidemia, unspecified; Translations: [Hyperlipidemia, unspecified] Onset: 09-03-2024 Chronic Essential hypertension (4 sources) Essential (primary) hypertension; Translations: [Essential (primary) hypertension] Onset: 09-03-2024 Chronic Nutritional deficiencies (1 source) Vitamin D deficiency, unspecified; Translations: [Vitamin D deficiency, unspecified] Onset: 02-27-2025 Chronic Other screening for suspected conditions (not mental disorders or infectious disease) (2 sources) Elevated prostate specific antigen [PSA]; Translations: [Encounter for screening for malignant neoplasm of prostate] Onset: 09-03-2024 Episodic Thyroid disorders (2 sources) Hypothyroidism, unspecified; Translations: [Hypothyroidism, unspecified] Onset: 01-13-2024 Chronic Unclassified (1 source) Abdominal aortic aneurysm, without rupture, unspecified; Translations: [Abdominal aortic aneurysm, without rupture, unspecified] Onset: 04-05-2025 Past or Other Problems Problem Classification Problem Date Documented Date Episodic/Chronic Other connective tissue disease (1 source) Personal history of other diseases of the musculoskeletal system and connective tissue; Translations: [Personal history of other diseases of the musculoskeletal system and connective tissue] Onset: 01-13-2024 Episodic Skin and subcutaneous tissue infections (2 sources) Cellulitis and abscess of upper limb; Translations: [Cellulitis and abscess of hand] Onset: 03-11-2019 03-11-2019 Episodic Results Test Name Value Interpretation Reference Range Facility 12 Lead EKGon 05-11-2025 12 Lead EKG [facility] Cardiovascular Services [address] [place] [address] 12 Lead EKG 05/11/25 0813 MR#: [id number] Acct: [id number] Name: ERVIN SANCHEZ Rep #: [id number] : 1945 80 From: Dat Alba MD Attending Dr: Dr. Aamir Zavala MD Status: PRE [facility] Ordering Dr: Aamir Zavala MD Date: 05/11/25 Location: [facility] Sex: M C Admitted: Test Reason : PREOP Blood Pressure : */* mmHG Vent. Rate : 85 BPM Atrial Rate : 85 BPM P-R Int : 198 ms QRS Dur : 138 ms QT Int : 374 ms P-R-T Axes : 60 32 23 degrees QTcB Int : 445 ms Sinus rhythm with Possible Premature atrial complexes with Aberrant conduction Right bundle branch block Abnormal ECG When compared with ECG of 14-Jul-2011 10:23, Aberrant conduction is now Present Right bundle branch block is now Present Confirmed by Dat Alba ([id number]), restaurant expeditor CRIS SNEED ([id number]) on 05/14/2025 1:08:57 PM Referred By: CORRINE Confirmed By: Dat Alba 05/14/25 1309 Date Dat Alba MD CC: Dr. Aamir Zavala MD; Dr. Dominik Lee MD Signed Normal [facility] Basic Metabolic Profile (BMP )on 05-08-2025 BUN/CRE 21.5 RATIO High 04-23 [facility] Comment on above: Performed By: #### L 3110.0500, L400.2011, L500.4050, L501.9985, L501.9520, L100.0100, L500.4100 #### [facility] [address] [place], [address] Calcium [Mass/Vol] 9.8 mg/dL Normal 7.6-11.0 [facility] Comment on above: Performed By: #### L 3110.0500, L400.2010, L500.4050, L501.9985, L501.9520, L100.0100, L500.4100 #### [facility] [address] [place], [address] Chloride [Moles/Vol] 95 mmol/L Low 98-108 [facility] Comment on above: Performed By: #### L 3110.0500, L400.2010, L500.4050, L501.9985, L501.9520, L100.0100, L500.4100 #### [facility] [address] [place], [address] CO2 [Moles/Vol] 24.3 mmol/L Normal 21.0-32.0 [facility] Comment on above: Performed By: #### L 3110.0500, L400.2010, L500.4050, L501.9985, L501.9520, L100.0100, L500.4100 #### [facility] [address] [place], [address] Creatinine [Mass/Vol] 0.73 mg/dL Normal 0.70-1.20 [facility] Comment on above: Performed By: #### L 3110.0500, L400.2010, L500.4050, L501.9985, L501.9520, L100.0100, L500.4100 #### [facility] [address] [place], [address] GAP 12 Normal 5-15 [facility] Comment on above: Performed By: #### L 3110.0500, L400.2010, L500.4050, L501.9985, L501.9520, L100.0100, L500.4100 #### [facility] [address] [place], [address] GFR/1.73 sq M.predicted among non-blacks MDRD (S/P/Bld) [Vol rate/Area] 93 mL/min/{1.73_m2} Normal >60 [facility] Comment on above: Result Comment: mL/m in/1.73m2 CKD-EPI Creatinine Equation (2020) Performed By: #### L 3110.0500, L400.2010, L500.4050, L501.9985, L501.9520, L100.0100, L500.4100 #### [facility] [address] [place], [address] Glucose [Mass/Vol] 103 mg/dL High 70-99 [facility] Comment on above: Performed By: #### L 3110.0500, L4.2010, L500.4050, L501.9985, L501.9520, L100.0100, L500.4100 #### [facility] [address] [place], [address] Potassium [Moles/Vol] 4.3 mmol/L Normal 3.3-5.1 [facility] Comment on above: Performed By: #### L 3110.0500, L400.2010, L500.4050, L501.9985, L501.9520, L100.0100, L500.4100 #### [facility] [address] [place], [address] Sodium [Moles/Vol] 132 mmol/L Low 133-145 [facility] Comment on above: Performed By: #### L 3110.0500, L400.2010, L500.4050, L501.9985, L501.9520, L100.0100, L500.4100 #### [facility] [address] [place], [address] Urea nitrogen [Mass/Vol] 16 mg/dL Normal 4-19 [facility] Comment on above: Performed By: #### L 3110.0500, L400.2010, L500.4050, L501.9985, L501.9520, L100.0100, L500.4100 #### [facility] [address] [place], [address] CBC-Complete Blood Cnt No Di ffon 05-08-2025 Erythrocyte distribution width (RBC) [Ratio] 11.8 % Normal 11.6-14.6 [facility] Comment on above: Performed By: #### L 3110.0500, L400.2010, L500.4050, L501.9985, L501.9520, L100.0100, L500.4100 #### [facility] [address] [place], [address] Hematocrit (Bld) [Volume fraction] 42.5 % Normal 40-54 [facility] Comment on above: Performed By: #### L 3110.0500, L400.2010, L500.4050, L501.9985, L501.9520, L100.0100, L500.4100 #### [facility] [address] [place], [address] Hemoglobin (Bld) [Mass/Vol] 15.1 g/dL Normal 13.0-16.5 [facility] Comment on above: Performed By: #### L 3110.0500, L400.2010, L500.4050, L501.9985, L501.9520, L100.0100, L500.4100 #### [facility] [address] [place], [address] MCH (RBC) [Entitic mass] 30.8 pg Normal 27.0-32.0 [facility] Comment on above: Performed By: #### L 3110.0500, L400.2010, L500.4050, L501.9985, L501.9520, L100.0100, L500.4100 #### [facility] [address], [address] MCHC (RBC) [Mass/Vol] 35.5 g/dL Normal 32-36 [facility] Comment on above: Performed By: #### L 3110.0500, L400.2010, L500.4050, L501.9985, L501.9520, L100.0100, L500.4100 #### [facility] [address] [place], [address] MCV (RBC) [Entitic vol] 86.6 fL Normal 80-94 [facility] Comment on above: Performed By: #### L 3110.0500, L400.2010, L500.4050, L501.9985, L501.9520, L100.0100, L500.4100 #### [facility] [address] [place], [address] Platelet mean volume (Bld) [Entitic vol] 8.9 fL Normal 6.2-12.0 [facility] Comment on above: Performed By: #### L 3110.0500, L400.2010, L500.4050, L501.9985, L501.9520, L100.0100, L500.4100 #### [facility] [address] [place], [address] Platelets (Bld) [#/Vol] 193 10*3/uL Normal 150-450 [facility] Comment on above: Performed By: #### L 3110.0500, L400.2010, L500.4050, L501.9985, L501.9520, L100.0100, L500.4100 #### [facility] [address] [place], [address] RBC (Bld) [#/Vol] 4.91 10*6/uL Normal 4.6-6.2 [facility] Comment on above: Performed By: #### L 3110.0500, L400.2011, L500.4050, L501.9985, L501.9520, L100.0100, L500.4100 #### [facility] [address] [place], [address] RDW SD 37.5 fl Normal 35.1-43.9 [facility] Comment on above: Performed By: #### L 3110.0500, L400.2011, L500.4050, L501.9985, L501.9520, L100.0100, L500.4100 #### [facility] [address] [place], [address] WBC (Bld) [#/Vol] 8.2 10*3/uL Normal 4.4-11.0 [facility] Comment on above: Performed By: #### L 3110.0500, L400.2010, L500.4050, L501.9985, L501.9520, L100.0100, L500.4100 #### [facility] [address] [place], [address] AAA Screeningon 03-09-2025 AAA Screening [facility] Cardiovascular Services [address] [place] [address] AAA Screening 03/09/25 09 MR#: [id number] Acct: [id number] Name: ERVIN SANCHEZ Rep #: [id number] : 1945 80 From: Maximo Head MD Attending Dr: Dr. Dominik Lee MD Status: REG CLI Ordering Dr: Dominik Lee MD Date: 03/09/25 Location: [facility] Sex: M C Admitted: Reason For Study Reason For Study: Screening Aorta Measurements Aorta Doppler Measurements Proximal aorta measures2.39 x 2.36cm. in cross-sectional Peak systolic flow velocities within the proximal aorta axis. measure 90.4 cm/sec. Proximal aorta measures2.38cm. in longitudinal axis. Peak systolic flow velocities within the mid aorta measure Mid aorta measures1.67 x 1.56cm. in cross-sectional axis. 83.2 cm/sec. Mid aorta measures1.55cm. in longitudinal axis. Peak systolic flow velocities within the distal aorta Distal aorta measures1.62 x 1.62cm. in cross-sectional axis.measure 106.7 cm/sec. Distal aorta measures1.62cm. in longitudinal axis. Left Iliac Artery Left iliac artery measures 0.90 x 0.91 cm. in the cross-sectional axis. Left iliac artery measures 0.96 cm. in the longitudinal axis. Peak systolic velocity in the left iliac artery measures 120.5 cm/sec. Right Iliac Artery Right iliac artery measures 0.95 x 0.94 cm. in the cross-sectional axis. Right iliac artery measures 0.94 cm. in the longitudinal axis. Peak systolic velocity in the right iliac artery measures 120.5 cm/sec. Procedure Aorta IVC Iliac vasculature or bypass grafts 03333. Exam performed in department. VL/AAA Screening Interpretation Summary The dimensions of the intra-abdominal aorta appear normal, without evidence of aneurysmal dilatation. The iliac arteries also appear normal in caliber bilaterally. The intra-abdominal aorta and iliac arteries appear patent, demonstrating normal, pulsatile arterial flow and normal peak systolic velocities. Ordering Physician: Dominik Lee Chi Referring Physician: Dominik Lee Chi Performed By: Letha Dunaway RVT and Student 03/09/252244 Date Maximo Head MD CC: Dr. Dominik Lee MD Date Dictated: 03/09/25900 Date Transcribed: 03/09/255 Electronics Warfare Technician: Signed Normal [facility] Cardiovascular ultrasound re portOrdered By: Maximo Head on 03-09-2025 Study report [facility] Cardiovascular [place] [address] AAA Screening 03/09/25900 MR#: [id number] Acct: [id number] Name: ERVIN SANCHEZ Rep #:[id number] : 1945 80 From: Maximo Head MD Attending Dr: Dr. Dominik Lee MD Status: REG CLI Ordering Dr: Dominik Lee MD Date: 11/26 Location: [facility] Sex: M C Admitted: Reason For Study Reason For Study: Screening Aorta Measurements Aorta Doppler Measurements Proximal aorta measures2.39 x 2.36cm. in cross-sectional Peak systolic flow velocities within the proximal aorta axis. measure 90.4 cm/sec. Proximal aorta measures2.38cm. in longitudinal axis. Peak systolic flow velocities within the mid aorta measure Mid aorta measures1.67 x 1.56cm. in cross-sectional axis. 83.2 cm/sec. Mid aorta measures1.55cm. in longitudinal axis. Peak systolic flow velocities within the distal aorta Distal aorta measures1.62 x 1.62cm. in cross-sectional axis.measure 106.7 cm/sec. Distal aorta measures1.62cm. in longitudinal axis. Left Iliac Artery Left iliac artery measures 0.90 x 0.91 cm. in the cross-sectional axis. Left iliac artery measures 0.96 cm. in the longitudinal axis. Peak systolic velocity in the left iliac artery measures 120.5 cm/sec. Right Iliac Artery Right iliac artery measures 0.95 x 0.94 cm. in the cross-sectional axis. Right iliac artery measures 0.94 cm. in the longitudinal axis. Peak systolic velocity in the right iliac artery measures 120.5 cm/sec. Procedure Aorta IVC Iliac vasculature or bypass grafts 81795. Exam performed in department. VL/AAA Screening Interpretation Summary The dimensions of the intra-abdominal aorta appear normal, without evidence of aneurysmal dilatation. The iliac arteries also appear normal in caliber bilaterally. The intra-abdominal aorta and iliac arteries appear patent, demonstrating normal, pulsatile arterial flow and normal peak systolic velocities. Ordering Physician: Dominik Lee Chi Referring Physician: Dominik Lee Chi Performed By: Letha Dunaway RVT and Student 03/09/252244 Date _ Maximo Head MD CC: Dr. Dominik Lee MD ~ Date Dictated: 03/09/25900 Date Transcribed: 03/09/252244 Electronics Warfare Technician: Signed [facility] Work Phone: Absolute lymphocyte countOrd ered By: Dominik Lee on 02-27-2025 Lymphocytes Auto (Unsp spec) [#/Vol] 2.36 10*3/uL 0.83-4.51 [facility] Absolute neutrophil countOrd ered By: Dominik Lee on 02-27-2025 Neutrophils (Bld) [#/Vol] 4.7 10*3/uL 2.0-7.7 [facility] Anion gap in Serum or Plasma Ordered By: Dominik Lee on 02-27-2025 Anion gap [Moles/Vol] 17 mmol/L High 5-15 [facility] Automated lymphocyte count a s percentage of total leukocytesOrdered By: Dominik Lee on 02-27-2025 Lymphocytes/100 WBC Auto (Unsp spec) 30.1 % 19-41 [facility] BUN/creatinine ratioOrdered By: Dominik Lee on 02-27-2025 Urea nitrogen/Creatinine [Mass ratio] 18.8 mg/mg 10-20 [facility] Basophil percentageOrdered B y: Dominik Lee on 02-27-2025 Basophils/100 WBC (Bld) 0.3 % 0-1 [facility] Bilirubin, totalOrdered By: Dominik Lee on 02-27-2025 Bilirubin [Mass/Vol] 0.29 mg/dL 0.00-1.30 [facility] CBC W/Diff, Automatedon 02-03 Absolute Lymph 2.36 X10 3/uL Normal 0.83-4.51 [facility] Comment on above: Performed By: #### L 506.1001, L501.9520, L3890.6301, L500.4100, L500.4050, L100.0100 #### [facility] [address] [place], [address] Absolute Neut 4.7 X10 3/uL Normal 2.0-7.7 [facility] Comment on above: Performed By: #### L 506.1001, L501.9520, L3890.6301, L500.4100, L500.4050, L100.0100 #### [facility] [address] [place], [address] Basophils/100 WBC (Bld) 0.3 % Normal 0-1 [facility] Comment on above: Performed By: #### L 506.1001, L501.9520, L3890.6301, L500.4100, L500.4050, L100.0100 #### [facility] [address] [place], [address] Eosinophils/100 WBC (Bld) 2.4 % Normal 0-5 [facility] Comment on above: Performed By: #### L 506.1001, L501.9520, L3890.6301, L500.4100, L500.4050, L100.0100 #### [facility] [address] [place], [address] Erythrocyte distribution width (RBC) [Ratio] 11.7 % Normal 11.6-14.6 [facility] Comment on above: Performed By: #### L 506.1001, L501.9520, L3890.6301, L500.4100, L500.4050, L100.0100 #### [facility] [address] [place], [address] Hematocrit (Bld) [Volume fraction] 44.0 % Normal 40-54 [facility] Comment on above: Performed By: #### L 506.1001, L501.9520, L3890.6301, L500.4100, L500.4050, L100.0100 #### [facility] [address] [place], [address] Hemoglobin (Bld) [Mass/Vol] 15.6 g/dL Normal 13.0-16.5 [facility] Comment on above: Performed By: #### L 506.1001, L501.9520, L3890.6301, L500.4100, L500.4050, L100.0100 #### [facility] [address] [place], [address] IG% 0.300 Normal 0.0-0.9 [facility] Comment on above: Result Comment: IG% - Immature Granulocytes (promyelocytes, myelocytes and metamyelocytes) > 1% indicates that a LEFT SHIFT is Present. Performed By: #### L 506.1001, L501.9520, L3890.6301, L500.4100, L500.4050, L100.0100 #### [facility] [facility] [address] [place], [address] Lymphocytes/100 WBC (Bld) 30.1 % Normal 19-41 [facility] Comment on above: Performed By: #### L 506.1001, L501.9520, L3890.6301, L500.4100, L500.4050, L100.0100 #### [facility] [address] [place], [address] MCH (RBC) [Entitic mass] 30.7 pg Normal 27.0-32.0 [facility] Comment on above: Performed By: #### L 506.1001, L501.9520, L3890.6301, L500.4100, L500.4050, L100.0100 #### [facility] [address], [address] MCHC (RBC) [Mass/Vol] 35.5 g/dL Normal 32-36 [facility] Comment on above: Performed By: #### L 506.1001, L501.9520, L3890.6301, L500.4100, L500.4050, L100.0100 #### [facility] [address], [address] MCV (RBC) [Entitic vol] 86.6 fL Normal 80-94 [facility] Comment on above: Performed By: #### L 506.1001, L501.9520, L3890.6301, L500.4100, L500.4050, L100.0100 #### [facility] [address], [address] Monocytes/100 WBC (Bld) 7.2 % Normal 0-10 [facility] Comment on above: Performed By: #### L 506.1001, L501.9520, L3890.6301, L500.4100, L500.4050, L100.0100 #### [facility] [address] [place], [address] Neutrophils/100 WBC (Bld) 59.7 % Normal 47-70 [facility] Comment on above: Performed By: #### L 506.1001, L501.9520, L3890.6301, L500.4100, L500.4050, L100.0100 #### [facility] [address] [place], [address] Nucleated RBC (Bld) [#/Vol] 0 10*3/uL Normal 0-5 [facility] Comment on above: Performed By: #### L 506.1001, L501.9520, L3890.6301, L500.4100, L500.4050, L100.0100 #### [facility] [address] [place], [address] Platelet mean volume (Bld) [Entitic vol] 9.0 fL Normal 6.2-12.0 [facility] Comment on above: Performed By: #### L 506.1001, L501.9520, L3890.6301, L500.4100, L500.4050, L100.0100 #### [facility] [address] [place], [address] Platelets (Bld) [#/Vol] 203 10*3/uL Normal 150-450 [facility] Comment on above: Performed By: #### L 506.1001, L501.9520, L3890.6301, L500.4100, L500.4050, L100.0100 #### [facility] [address] [place], [address] RBC (Bld) [#/Vol] 5.08 10*6/uL Normal 4.6-6.2 [facility] Comment on above: Performed By: #### L 506.1001, L501.9520, L3890.6301, L500.4100, L500.4050, L100.0100 #### [facility] [address] [place], [address] RDW SD 37.4 fl Normal 35.1-43.9 [facility] Comment on above: Performed By: #### L 506.1001, L501.9520, L3890.6301, L500.4100, L500.4050, L100.0100 #### [facility] [address] [place], [address] WBC (Bld) [#/Vol] 7.8 10*3/uL Normal 4.4-11.0 [facility] Comment on above: Performed By: #### L 506.1001, L501.9520, L3890.6301, L500.4100, L500.4050, L100.0100 #### [facility] [address] [place], [address] Calculated very low density lipoprotein (VLDL) cholesterol measurementOrdered By: Dominik Lee on 02-27-2025 Calculated very low density lipoprotein (VLDL) cholesterol measurement 35 mg/dL 5-40 [facility] Carbon dioxide, total [Moles /volume] in Central venous bloodOrdered By: Dominik Lee on 02-27-2025 CO2 [Moles/Vol] 22.1 mmol/L 21.0-32.0 [facility] Chloride assayOrdered By: Isrrael Lee on 02-27-2025 Chloride [Moles/Vol] 94 mmol/L Low 98-108 [facility] Comprehensive Metabolic Prof ilon 02-27-2025 Albumin [Mass/Vol] 4.7 g/dL Normal 3.4-4.8 [facility] Comment on above: Performed By: #### L 3110.0500, L4.2010, L500.4050, L501.9985, L501.9520, L100.0100, L500.4100 #### [facility] [address] [place], [address] Albumin/Globulin [Mass ratio] 1.9 {ratio} Normal 0.9-2.4 [facility] Comment on above: Performed By: #### L 3110.0500, L400.2010, L500.4050, L501.9985, L501.9520, L100.0100, L500.4100 #### [facility] [address] [place], [address] ALK PHOS 69 U/L Normal 40-129 [facility] Comment on above: Performed By: #### L 3110.0500, L400.2010, L500.4050, L501.9985, L501.9520, L100.0100, L500.4100 #### [facility] [address] [place], [address] ALT [Catalytic activity/Vol] 19 U/L Normal <=46 [facility] Comment on above: Performed By: #### L 3110.0500, L400.2010, L500.4050, L501.9985, L501.9520, L100.0100, L500.4100 #### [facility] [address] [place], [address] AST [Catalytic activity/Vol] 18 U/L Normal <=37 [facility] Comment on above: Performed By: #### L 3110.0500, L400.2010, L500.4050, L501.9985, L501.9520, L100.0100, L500.4100 #### [facility] [address] [place], [address] Bilirubin [Mass/Vol] 0.29 mg/dL Normal 0.00-1.30 [facility] Comment on above: Performed By: #### L 3110.0500, L400.2010, L500.4050, L501.9985, L501.9520, L100.0100, L500.4100 #### [facility] [address] [place], [address] BUN/CRE 18.8 RATIO Normal 10-20 [facility] Comment on above: Performed By: #### L 3110.0500, L400.2010, L500.4050, L501.9985, L501.9520, L100.0100, L500.4100 #### [facility] [address] [place], [address] Calcium [Mass/Vol] 9.6 mg/dL Normal 7.6-11.0 [facility] Comment on above: Performed By: #### L 3110.0500, L400.2010, L500.4050, L501.9985, L501.9520, L100.0100, L500.4100 #### [facility] [address] [place], [address] Chloride [Moles/Vol] 94 mmol/L Low 98-108 [facility] Comment on above: Performed By: #### L 3110.0500, L400.2010, L500.4050, L501.9985, L501.9520, L100.0100, L500.4100 #### [facility] [address] [place], [address] CO2 [Moles/Vol] 22.1 mmol/L Normal 21.0-32.0 [facility] Comment on above: Performed By: #### L 3110.0500, L4.2010, L500.4050, L501.9985, L501.9520, L100.0100, L500.4100 #### [facility] [address] [place], [address] Creatinine [Mass/Vol] 0.79 mg/dL Normal 0.70-1.20 [facility] Comment on above: Performed By: #### L 3110.0500, L4, L500.4050, L501.9985, L501.9520, L100.0100, L500.4100 #### [facility] [address] [place], [address] GAP 17 High 5-15 [facility] Comment on above: Performed By: #### L 3110.0500, L400.2010, L500.4050, L501.9985, L501.9520, L100.0100, L500.4100 #### [facility] [address] [place], [address] GFR/1.73 sq M.predicted among non-blacks MDRD (S/P/Bld) [Vol rate/Area] 91 mL/min/{1.73_m2} Normal >60 [facility] Comment on above: Result Comment: mL/m in/1.73m2 CKD-EPI Creatinine Equation (2020) Performed By: #### L 3110.0500, L400.2010, L500.4050, L501.9985, L501.9520, L100.0100, L500.4100 #### [facility] [address] [place], [address] Globulin (S) [Mass/Vol] 2.5 g/dL Normal 2.2-4.2 [facility] Comment on above: Performed By: #### L 3110.0500, L400.2010, L500.4050, L501.9985, L501.9520, L100.0100, L500.4100 #### [facility] [address] [place], [address] Glucose [Mass/Vol] 92 mg/dL Normal 70-99 [facility] Comment on above: Performed By: #### L 3110.0500, L400.2010, L500.4050, L501.9985, L501.9520, L100.0100, L500.4100 #### [facility] [address] [place], [address] Potassium [Moles/Vol] 4.4 mmol/L Normal 3.3-5.1 [facility] Comment on above: Performed By: #### L 3110.0500, L400.2010, L500.4050, L501.9985, L501.9520, L100.0100, L500.4100 #### [facility] [address] [place], [address] Sodium [Moles/Vol] 133 mmol/L Normal 133-145 [facility] Comment on above: Performed By: #### L 3110.0500, L400.2010, L500.4050, L501.9985, L501.9520, L100.0100, L500.4100 #### [facility] [address] [place], [place], [address] (521) T PROT 7.3 g/dL Normal 5.9-8.4 [facility] Comment on above: Performed By: #### L 3110.0500, L400.2010, L500.4050, L501.9985, L501.9520, L100.0100, L500.4100 #### [facility] [address] [place], [place], [address] Urea nitrogen [Mass/Vol] 15 mg/dL Normal 4-19 [facility] Comment on above: Performed By: #### L 3110.0500, L400.2010, L500.4050, L501.9985, L501.9520, L100.0100, L500.4100 #### [facility] [address] [place], [place], [address] Eosinophil percentageOrdered By: Dominik Lee 02-27-2025 Eosinophils/100 WBC (Bld) 2.4 % 0-5 [facility] Erythrocyte distribution wid th ratioOrdered By: Dominik Lee 02-27-2025 Erythrocyte distribution width (RBC) [Ratio] 11.7 % 11.6-14.6 [facility] Erythrocyte distribution wid th standard deviationOrdered By: Dominik Lee 02-27-2025 Erythrocyte distribution width (RBC) [Ratio] 37.4 fl 35.1-43.9 [facility] Glomerular filtration rate ( GFR) estimation/1.73 sq m using serum, plasma, or whole bOrdered By: Dominik Lee on 02-27-2025 GFR/1.73 sq M.predicted among non-blacks MDRD (S/P/Bld) [Vol rate/Area] 91 mL/min/{1.73_m2} >60 [facility] Comment on above: mL/min/1.73m2 CKD-EP I Creatinine Equation (2020) Hematocrit Auto (Bld) [Volum e fraction]Ordered By: Dominik Lee on 02-27-2025 Hematocrit (Bld) [Volume fraction] 44.0 % 40-54 [facility] Hemoglobin measurementOrdere d By: Dominik Lee on 02-27-2025 Hemoglobin (Bld) [Mass/Vol] 15.6 g/dL 13.0-16.5 [facility] Hepatitis C Antibodyon 02-27 Hepatitis C Ab Non-Reactive Normal Nonreactive [facility] Comment on above: Result Comment: Reac tive: Presumptive evidence of antibodies to HCV. Follow CDC recommendations for supplemental testing. Non-Reactive: Antibodies to HCV were not detected; does not exclude the possibility of exposure to HCV Reactive Results are presumptive evidence of antibodies to HCV. Follow CDC recommendations for supplemental testing. Order confirmation testing: HCV Quant by PCR testing - HCVPCR #[id number] Non Reactive: < 0.8 Equivocal: >/= 0.8 to < 1.0 Reactive: >/= 1.0 The [facility] requires that a reactive/equivocal HCV antibody result be sent out for confirmation. HCV Quant by PCR testing. Performed By: #### L 3110.0500, L400.2011, L500.4050, L501.9985, L501.9520, L100.0100, L500.4100 #### [facility] [address] [place], [address] Immature granulocytes/100 WB C Auto (Bld)Ordered By: Dominik Lee on 02-27-2025 Immature granulocytes/100 WBC (Bld) 0.300 % 0.0-0.9 [facility] Comment on above: IG% - Immature Granu locytes (promyelocytes, myelocytes and metamyelocytes) > 1% indicates that a LEFT SHIFT is Present. LDL calc ser/plasOrdered By: Dominik Lee on 02-27-2025 Cholesterol in LDL [Mass/Vol] 107 mg/dL [facility] Comment on above: Ncghaluyhs=175-796 m g/dL & Higher Uxil=722 mg/dL or greaterFriedwald Equation for LDL-C Laboratory - Chemistry and C hemistry - challengeOrdered By: Dominik Lee on 02-27-2025 AST [Catalytic activity/Vol] 18 U/L <38 [facility] Lipid Profileon 02-27-2025 CHOL:HDL 3.74 Normal [facility] Comment on above: Performed By: #### L 3110.0500, L400.2010, L500.4050, L501.9985, L501.9520, L100.0100, L500.4100 #### [facility] [address] [place], [address] Cholesterol [Mass/Vol] 194 mg/dL Normal <=200 [facility] Comment on above: Result Comment: Chol esterol level, Desirable <200 mg/dL Borderline high cholesterol 200-239 mg/dL High cholesterol >=240 mg/dL Recommendations of the NCEP Adult Treatment Panel for the following risk-cutoff thresholds for the [place] population. Performed By: #### L 3110.0500, L400, L500.4050, L501.9985, L501.9520, L100.0100, L500.4100 #### [facility] [address] [place], [address] Cholesterol in HDL [Mass/Vol] 52 mg/dL Normal [facility] Comment on above: Result Comment: Unique onal Cholesterol Education Program (NCEP) guidelines: <40 mg/dL: Low HDL-cholesterol (major risk factor for CHD) >= 60 mg/dL: High HDL-cholesterol (negative risk factor for CHD) HDL-cholesterol is affected by a number of factors, e.g. smoking, exercise, hormones, sex and age. Performed By: #### L 3110.0500, L400, L500.4050, L501.9985, L501.9520, L100.0100, L500.4100 #### [facility] [address] [place], [address] Cholesterol in LDL [Mass/Vol] 107 mg/dL Normal [facility] Comment on above: Result Comment: Bord zqnvct=905-048 mg/dL Higher Umaj=636 mg/dL or greater Friedwald Equation for LDL-C Performed By: #### L 3110.0500, L400.2010, L500.4050, L501.9985, L501.9520, L100.0100, L500.4100 #### [facility] [address] [place], [address] Cholesterol in VLDL [Mass/Vol] 35 mg/dL Normal 5-40 [facility] Comment on above: Performed By: #### L 3110.0500, L400.2010, L500.4050, L501.9985, L501.9520, L100.0100, L500.4100 #### [facility] [address] [place], [address] Triglyceride [Mass/Vol] 176 mg/dL Normal [facility] Comment on above: Result Comment: The drugs N-Acetylcysteine and Metamizole may falsely depress this assay. Normal range: <150 mg/dL Borderline High: 150-199 mg/dL High: 200-499 mg/dL Very High: >500 mg/dL Performed By: #### L 3110.0500, L400.2010, L500.4050, L501.9985, L501.9520, L100.0100, L500.4100 #### [facility] [address] [place], [address] MCV (mean corpuscular volume ) determinationOrdered By: Dominik Lee on 02-27-2025 MCV (RBC) [Entitic vol] 86.6 fL 80-94 [facility] Mean corpuscular hemoglobin (MCH) determinationOrdered By: Dominik Lee on 02-27-2025 MCH (RBC) [Entitic mass] 30.7 pg 27.0-32.0 [facility] Mean corpuscular hemoglobin concentration (MCHC) determinationOrdered By: Dominik Lee on 02-27-2025 MCHC (RBC) [Mass/Vol] 35.5 g/dL 32-36 [facility] Mean platelet volume determi nationOrdered By: Dominik Lee on 02-27-2025 Platelet mean volume (Bld) [Entitic vol] 9.0 fL 6.2-12.0 [facility] Monocyte percentageOrdered B y: Dominik Lee on 02-27-2025 Monocytes/100 WBC (Bld) 7.2 % 0-10 [facility] Neutrophil percentageOrdered By: Dominik Lee on 02-27-2025 Neutrophils/100 WBC (Bld) 59.7 % 47-70 [facility] Nucleated red blood cell per centageOrdered By: Dominik Lee on 02-27-2025 Nucleated RBC/100 WBC (Bld) [Ratio] 0 % 0-5 [facility] Platelet countOrdered By: Isrrael Lee on 02-27-2025 Platelets (Bld) [#/Vol] 203 10*3/uL 150-450 [facility] Potassium measurement (mass/ volume)Ordered By: Dominik Lee on 02-27-2025 Potassium (Unsp spec) [Mass/Vol] 4.4 mmol/L 3.3-5.1 [facility] RBC Auto (Bld) [#/Vol]Ordere d By: Dominik eLe on 02-27-2025 RBC (Bld) [#/Vol] 5.08 10*6/uL 4.6-6.2 [facility] Screening total cholesterol/ high density lipoprotein (HDL) cholesterol ratioOrdered By: Dominik Lee on 02-27-2025 Cholesterol.total/Choles terol in HDL [Mass ratio] 3.74 {ratio} [facility] Serum creatinine measurement (mass/volume)Ordered By: Dominik Lee on 02-27-2025 Creatinine [Mass/Vol] 0.79 mg/dL 0.70-1.20 [facility] Serum globulin measurementOr dered By: Dominik Lee 02-27-2025 Globulin (S) [Mass/Vol] 2.5 g/dL 2.2-4.2 [facility] Serum glucose measurement (m ass/volume)Ordered By: Dominik Lee on 02-27-2025 Glucose [Mass/Vol] 92 mg/dL 70-99 [facility] Serum or plasma alanine lane otransferase (ALT) measurementOrdered By: Dominik Lee 02-27-2025 ALT [Catalytic activity/Vol] 19 U/L <47 [facility] Serum or plasma albumin amol urement (mass/volume)Ordered By: Dominik Lee 02-27-2025 Albumin [Mass/Vol] 4.7 g/dL 3.4-4.8 [facility] Serum or plasma albumin/glob ulin mass ratioOrdered By: Dominik Lee 02-27-2025 Albumin/Globulin [Mass ratio] 1.9 {ratio} 0.9-2.4 [facility] Serum or plasma alkaline angelina sphatase measurementOrdered By: Dominik Lee 02-27-2025 ALP [Catalytic activity/Vol] 69 U/L 40-129 [facility] Serum or plasma calcium amol urement (mass/volume)Ordered By: Dominik Lee 02-27-2025 Calcium [Mass/Vol] 9.6 mg/dL 7.6-11.0 [facility] Serum or plasma cholesterol in HDL measurement (mass/volume)Ordered By: Dominik Lee 02-27-2025 Cholesterol in HDL [Mass/Vol] 52 mg/dL >40 [facility] Comment on above: National Cholesterol Education Program (NCEP) guidelines:<40 mg/dL: Low HDL-cholesterol (major risk factor for CHD)>= 60 mg/dL: High HDL-cholesterol (negative risk factor for CHD)HDL-cholesterol is affected by a number of factors, e.g. smoking, exercise, hormones, sex and age. Serum or plasma cholesterol measurement (mass/volume)Ordered By: Dominik Lee 02-27-2025 Cholesterol [Mass/Vol] 194 mg/dL <201 [facility] Comment on above: Cholesterol level, D esirable <200 mg/dLBorderline high cholesterol 200-239 mg/dLHigh cholesterol >=240 mg/dLRecommendations of the NCEP Adult Treatment Panel for the following risk-cutoff thresholds for the [place] population. Serum or plasma urea nitroge n measurement (mass/volume)Ordered By: Dominik Lee 02-27-2025 Urea nitrogen [Mass/Vol] 15 mg/dL 4-19 [facility] Sodium levelOrdered By: Dominik Lee 02-27-2025 Sodium [Moles/Vol] 133 mmol/L 133-145 [facility] TSH DL <= 0.005 mIU/L QnOrde red By: Dominik Lee on 02-27-2025 TSH Qn 0.846 uIU/mL 0.300-4.200 [facility] Thyroid Stim Hormone (TSH)on 02-27-2025 TSH 0.846 uIU/mL Normal 0.300-4.200 [facility] Comment on above: Performed By: #### L 3110.0500, L400.2010, L500.4050, L501.9985, L501.9520, L100.0100, L500.4100 #### [facility] [address] [place], [place], [id number] Total proteinOrdered By: Dominik Lee on 02-27-2025 Protein [Mass/Vol] 7.3 g/dL 5.9-8.4 [facility] Triglycerides measurementOrd ered By: Dominik Lee on 02-27-2025 Triglyceride [Mass/Vol] 176 mg/dL <199 [facility] Comment on above: The drugs N-Acetylcy steine and Metamizole may falsely depress this assay. Normal range: <150 mg/dLBorderline High: 150-199 mg/dLHigh: 200-499 mg/dLVery High: >500 mg/dL Vitamin D,25 Hydroxyon 02-27 Vitamin D 25-OH 35.8 ng/mL Normal 30-100 [facility] Comment on above: Result Comment: Nelly min D Status Deficiency: <20 ng/mL (50nmol/L) Insufficiency: 20-30 ng/mL (50-75 nmol/L) Sufficiency: 30-100 ng/mL (75-250 nmol/L) Toxicity: >100 ng/mL (>250 nmol/L) Performed By: #### L 3110.0500, L400.2010, L500.4050, L501.9985, L501.9520, L100.0100, L500.4100 #### [facility] [address] [place], [address] White blood cell (WBC) count Ordered By: Dominik Lee on 02-27-2025 WBC (Bld) [#/Vol] 7.8 10*3/uL 4.4-11.[address] [facility] [address] CHEST/ABD/PELVIS C+on CT CHEST/ABD/PELVIS C+ [address] [address] Patient: ERVIN SANCHEZ Phone#: : [phone] Age: 79 Gender: M Pt. Type: Out Account: [id number] Location: 052 Ordering: GARRETT DELANEY Exam Date: 09/05/2024/12:58 Family Phys: Charge Code: 673334 Physician: Renville Order #: [id number] Dose#: 22.0 PROCEDURE: CT CHEST/ABD/PELVIS W COMPARISON: None. INDICATIONS: Weight loss. TECHNIQUE: After obtaining the patient's consent, CT images were obtained with oral contrast and intravenous contrast material. All CT scans at this facility use dose modulation, iterative reconstruction, and/or weight based dosing when appropriate to reduce radiation dose to as low as reasonably achievable. IV CONTRAST: Omnipaque 350,80ml CHEST DOSE: 8.20 CTDIvol(mGy) ABDOMEN DOSE: 13.80 CTDIvol(mGy) FINDINGS: LUNGS: Calcified granuloma is present in the right lung base and adjacent to the left hilum and right upper lobe. VASCULATURE: Normal. No visible pulmonary arterial thrombus or attenuation. MARCIO: Normal. No mass or adenopathy. MEDIASTINUM: Normal. No mass or adenopathy. CARDIAC: Normal. No enlargement, pericardial thickening, or significant calcification. PLEURA: Normal. No mass or effusion. CHEST WALL: Normal. No mass or axillary adenopathy. LIVER: Normal. No enlargement, atrophy, abnormal density, or significant focal lesion. BILIARY: Normal. No visible dilatation or calcification. PANCREAS: Normal. No lesion, fluid collection, ductal dilatation, or atrophy. SPLEEN: Normal. No enlargement or focal lesion. KIDNEYS: Normal. No mass, obstruction, or calcification. ADRENALS: Normal. No mass or enlargement. AORTA/VASCULAR: Isn't. No aneurysm or dissection. RETROPERITONEUM: Normal. No mass or adenopathy. BOWEL/MESENTERY: Normal. No visible mass, obstruction, or bowel wall thickening. Continued Report - Page 2 of 2 Patient: ERVIN SANCHEZ Phone#: : [phone] Age: 79 Gender: M Pt. Type: Out Account: [id number] Location: 052 Ordering: GARRETT DELANEY Exam Date: 09/05/2024/12:58 Family Phys: Charge Code: [id number] Physician: Renville Order #: [id number] Dose#: 22.0 ABDOMINAL WALL: There is a small right inguinal hernia. Surgical plug is present. There is a small left inguinal hernia with fat. There is a segment of bowel at the orifice of the hernia sac. URINARY BLADDER: Normal. No visible focal wall thickening, lesion, or calculus. PELVIC NODES: Normal. No adenopathy. PELVIC ORGANS: The prostate is enlarged and lobulated in contour. Attenuation is heterogeneous. There is impression on the base of the bladder. Prostate measures 7.3 by 5.9 by 5.7 centimeters. BONES: Degenerative changes of the spine are present. OTHER: Negative. CONCLUSION: 1. Left inguinal hernia is present. Bowel is present at the orifice of the hernia. 2. The prostate is enlarged and heterogeneous in attenuation and lobulated contour. The prostate impresses on the base of bladder. 3. Calcified pulmonary granulomas are present. Dictated by: Daisha Landeros MD on 09/05/2024 at 15:01 Approved by: Daisha Landeros MD on 09/05/2024 at 15:[address] [facility] PSA Total+%Freeon 08-23-2024 PSA, FREE 0.91 ng/mL Normal N/A [facility] Comment on above: Result Comment: Donovan SPARKS methodology. Performed By: #### L 3110.0500, L400.2011, L500.4050, L501.9985, L501.9520, L100.0100, L500.4100 #### [facility] [address] [place], [address] PSA, FREE % 18.1 Normal . [facility] Comment on above: Result Comment: The table below lists the probability of prostate cancer for men with non-suspicious ALICIA results and total PSA between 4 and 10 ng/mL, by patient age (Lon et al, MINH 1998, 279:1542). % Free PSA 50-64 yr 65-75 yr 0.00-10.00% 56% 55% 10.01-15.00% 24% 35% 15.01-20.00% 17% 23% 20.01-25.00% 10% 20% >25.00% 5% 9% Please note: Lon et al did not make specific recommendations regarding the use of percent free PSA for any other population of men. Performed at: [address] [id number] Brake Tester: Franki Mccormack PhD, Phone: [phone] Performed By: #### L 3110.0500, L400, L500.4050, L501.9985, L501.9520, L100.0100, L500.4100 #### [facility] [address] [place], [place], [id number] PSA, TOTAL ULTR 5.030 ng/mL Abnormal 0.000-4.000 [facility] Comment on above: Result Comment: Donovan murillo ECLIA methodology. According to the [employer], Serum PSA should decrease and remain at undetectable levels after radical prostatectomy. The AUA defines biochemical recurrence as an initial PSA value 0.200 ng/mL or greater followed by a subsequent confirmatory PSA value 0.200 ng/mL or greater. Values obtained with different assay methods or kits cannot be used interchangeably. Results cannot be interpreted as absolute evidence of the presence or absence of malignant disease. Performed By: #### L 3110.0500, L400, L500.4050, L501.9985, L501.9520, L100.0100, L500.4100 #### [facility] [address] [place], [place], [address] CBC W/Diff, Automatedon 08-05 Absolute Lymph 1.64 X10 3/uL Normal 0.83-4.51 [facility] Comment on above: Performed By: #### L 3110.0500, L400, L500.4050, L501.9985, L501.9520, L100.0100, L500.4100 #### [facility] [address] [place], [address] Absolute Neut 4.2 X10 3/uL Normal 2.0-7.7 [facility] Comment on above: Performed By: #### L 3110.0500, L400.2010, L500.4050, L501.9985, L501.9520, L100.0100, L500.4100 #### [facility] [address] [place], [address] Basophils/100 WBC (Bld) 0.2 % Normal 0-1 [facility] Comment on above: Performed By: #### L 3110.0500, L400.2010, L500.4050, L501.9985, L501.9520, L100.0100, L500.4100 #### [facility] [address] [place], [address] Eosinophils/100 WBC (Bld) 2.2 % Normal 0-5 [facility] Comment on above: Performed By: #### L 3110.0500, L400.2010, L500.4050, L501.9985, L501.9520, L100.0100, L500.4100 #### [facility] [address] [place], [address] Erythrocyte distribution width (RBC) [Ratio] 11.9 % Normal 11.6-14.6 [facility] Comment on above: Performed By: #### L 3110.0500, L400.2010, L500.4050, L501.9985, L501.9520, L100.0100, L500.4100 #### [facility] [address] [place], [address] Hematocrit (Bld) [Volume fraction] 45.2 % Normal 40-54 [facility] Comment on above: Performed By: #### L 3110.0500, L400.2010, L500.4050, L501.9985, L501.9520, L100.0100, L500.4100 #### [facility] [address] [place], [address] Hemoglobin (Bld) [Mass/Vol] 15.7 g/dL Normal 13.0-16.5 [facility] Comment on above: Performed By: #### L 3110.0500, L400.2010, L500.4050, L501.9985, L501.9520, L100.0100, L500.4100 #### [facility] [address] [place], [address] IG% 0.200 Normal 0.0-0.9 [facility] Comment on above: Result Comment: IG% - Immature Granulocytes (promyelocytes, myelocytes and metamyelocytes) > 1% indicates that a LEFT SHIFT is Present. Performed By: #### L 3110.0500, L400.2010, L500.4050, L501.9985, L501.9520, L100.0100, L500.4100 #### [facility] [address] [place], [address] Lymphocytes/100 WBC (Bld) 25.3 % Normal 19-41 [facility] Comment on above: Performed By: #### L 3110.0500, L400.2010, L500.4050, L501.9985, L501.9520, L100.0100, L500.4100 #### [facility] [address] [place], [address] MCH (RBC) [Entitic mass] 30.7 pg Normal 27.0-32.0 [facility] Comment on above: Performed By: #### L 3110.0500, L400.2010, L500.4050, L501.9985, L501.9520, L100.0100, L500.4100 #### [facility] [address] [place], [address] MCHC (RBC) [Mass/Vol] 34.7 g/dL Normal 32-36 [facility] Comment on above: Performed By: #### L 3110.0500, L400.2010, L500.4050, L501.9985, L501.9520, L100.0100, L500.4100 #### [facility] [address] [place], [address] MCV (RBC) [Entitic vol] 88.5 fL Normal 80-94 [facility] Comment on above: Performed By: #### L 3110.0500, L400.2010, L500.4050, L501.9985, L501.9520, L100.0100, L500.4100 #### [facility] [address] [place], [address] Monocytes/100 WBC (Bld) 7.9 % Normal 0-10 [facility] Comment on above: Performed By: #### L 3110.0500, L400.2010, L500.4050, L501.9985, L501.9520, L100.0100, L500.4100 #### [facility] [address] [place], [address] Neutrophils/100 WBC (Bld) 64.2 % Normal 47-70 [facility] Comment on above: Performed By: #### L 3110.0500, L400.2010, L500.4050, L501.9985, L501.9520, L100.0100, L500.4100 #### [facility] [address] [place], [address] Nucleated RBC (Bld) [#/Vol] 0 10*3/uL Normal 0-5 [facility] Comment on above: Performed By: #### L 3110.0500, L400.2010, L500.4050, L501.9985, L501.9520, L100.0100, L500.4100 #### [facility] [address] [place], [address] Platelet mean volume (Bld) [Entitic vol] 8.8 fL Normal 6.2-12.0 [facility] Comment on above: Performed By: #### L 3110.0500, L400.2010, L500.4050, L501.9985, L501.9520, L100.0100, L500.4100 #### [facility] [address] [place], [address] Platelets (Bld) [#/Vol] 228 10*3/uL Normal 150-450 [facility] Comment on above: Performed By: #### L 3110.0500, L4.2010, L500.4050, L501.9985, L501.9520, L100.0100, L500.4100 #### [facility] [address] [place], [address] RBC (Bld) [#/Vol] 5.11 10*6/uL Normal 4.6-6.2 [facility] Comment on above: Performed By: #### L 3110.0500, L400.2010, L500.4050, L501.9985, L501.9520, L100.0100, L500.4100 #### [facility] [address] [place], [address] RDW SD 38.5 fl Normal 35.1-43.9 [facility] Comment on above: Performed By: #### L 3110.0500, L400.2010, L500.4050, L501.9985, L501.9520, L100.0100, L500.4100 #### [facility] [address] [place], [address] WBC (Bld) [#/Vol] 6.5 10*3/uL Normal 4.4-11.0 [facility] Comment on above: Performed By: #### L 3110.0500, L400.2010, L500.4050, L501.9985, L501.9520, L100.0100, L500.4100 #### [facility] [address] [place], [address] Comprehensive Metabolic Prof ilon 08-22-2024 Albumin [Mass/Vol] 4.1 g/dL Normal 3.2-5.0 [facility] Comment on above: Performed By: #### L 3110.0500, L400.2010, L500.4050, L501.9985, L501.9520, L100.0100, L500.4100 #### [facility] [address] [place], [address] Albumin/Globulin [Mass ratio] 1.2 {ratio} Normal 0.9-2.4 [facility] Comment on above: Performed By: #### L 3110.0500, L4, L500.4050, L501.9985, L501.9520, L100.0100, L500.4100 #### [facility] [address] [place], [address] ALK P 72 U/L Normal 45-117 [facility] Comment on above: Performed By: #### L 3110.0500, L400.2010, L500.4050, L501.9985, L501.9520, L100.0100, L500.4100 #### [facility] [address] [place], [address] ALT [Catalytic activity/Vol] 27 U/L Normal 16-61 [facility] Comment on above: Performed By: #### L 3110.0500, L400, L500.4050, L501.9985, L501.9520, L100.0100, L500.4100 #### [facility] [address] [place], [address] AST [Catalytic activity/Vol] 10 U/L Low 15-37 [facility] Comment on above: Performed By: #### L 3110.0500, L400.2010, L500.4050, L501.9985, L501.9520, L100.0100, L500.4100 #### [facility] [address] [place], [address] Bilirubin [Mass/Vol] 0.70 mg/dL Normal 0.20-1.00 [facility] Comment on above: Result Comment: For patients on eltrombopag therapy, use of Dimension Ragland TBIL is not recommended. Performed By: #### L 3110.0500, L400.2010, L500.4050, L501.9985, L501.9520, L100.0100, L500.4100 #### [facility] [address] [place], [address] BUN/CRE 16.0 RATIO Normal 10-20 [facility] Comment on above: Performed By: #### L 3110.0500, L400.2010, L500.4050, L501.9985, L501.9520, L100.0100, L500.4100 #### [facility] [address] [place], [address] CA,Total 9.2 mg/dL Normal 8.5-10.1 [facility] Comment on above: Performed By: #### L 3110.0500, L400.2010, L500.4050, L501.9985, L501.9520, L100.0100, L500.4100 #### [facility] [address] [place], [address] Chloride [Moles/Vol] 99 mmol/L Normal 98-107 [facility] Comment on above: Performed By: #### L 3110.0500, L400.2010, L500.4050, L501.9985, L501.9520, L100.0100, L500.4100 #### [facility] [address] [place], [address] CO2 [Moles/Vol] 28.0 mmol/L Normal 21.0-32.0 [facility] Comment on above: Performed By: #### L 3110.0500, L400.2010, L500.4050, L501.9985, L501.9520, L100.0100, L500.4100 #### [facility] [address] [place], [address] Creatinine [Mass/Vol] 0.94 mg/dL Normal 0.70-1.30 [facility] Comment on above: Result Comment: The validity of the calculated GFR GFRAA in patients over 70 years has not been determined. Clinical correlation is essential. Performed By: #### L 3110.0500, L400.2010, L500.4050, L501.9985, L501.9520, L100.0100, L500.4100 #### [facility] [address] [place], [address] EST GFR - AA 100 mL/min Normal >60 [facility] Comment on above: Result Comment: Afri can [place] GFR Calc Performed By: #### L 3110.0500, L400.2010, L500.4050, L501.9985, L501.9520, L100.0100, L500.4100 #### [facility] [address] [place], [address] GAP 9 Normal 5-15 [facility] Comment on above: Performed By: #### L 3110.0500, L400.2010, L500.4050, L501.9985, L501.9520, L100.0100, L500.4100 #### [facility] [address] [place], [address] GFR/1.73 sq M.predicted among non-blacks MDRD (S/P/Bld) [Vol rate/Area] 83 mL/min/{1.73_m2} Normal >60 [facility] Comment on above: Result Comment: Non- GFR Calc Performed By: #### L 3110.0500, L400.2010, L500.4050, L501.9985, L501.9520, L100.0100, L500.4100 #### [facility] [address] [place], [address] Globulin (S) [Mass/Vol] 3.3 g/dL Normal 2.2-4.2 [facility] Comment on above: Performed By: #### L 3110.0500, L400.2010, L500.4050, L501.9985, L501.9520, L100.0100, L500.4100 #### [facility] [address] [place], [address] Glucose [Mass/Vol] 103 mg/dL Normal 74-106 [facility] Comment on above: Result Comment: Fast ing Glucose result from 100 to 125 mg/dL suggests IMPAIRED HOMEOSTASIS per A.D.A. criteria. Performed By: #### L 3110.0500, L400.2010, L500.4050, L501.9985, L501.9520, L100.0100, L500.4100 #### [facility] [address] [place], [address] Potassium [Moles/Vol] 4.2 mmol/L Normal 3.5-5.1 [facility] Comment on above: Performed By: #### L 3110.0500, L400.2010, L500.4050, L501.9985, L501.9520, L100.0100, L500.4100 #### [facility] [address] [place], [address] Sodium [Moles/Vol] 135 mmol/L Low 136-145 [facility] Comment on above: Performed By: #### L 3110.0500, L400.2010, L500.4050, L501.9985, L501.9520, L100.0100, L500.4100 #### [facility] [address] [place], [address] T PROT 7.4 g/dL Normal 6.4-8.2 [facility] Comment on above: Performed By: #### L 3110.0500, L400.2010, L500.4050, L501.9985, L501.9520, L100.0100, L500.4100 #### [facility] [address] [place], [address] Urea nitrogen [Mass/Vol] 15 mg/dL Normal 7-18 [facility] Comment on above: Performed By: #### L 3110.0500, L400.2010, L500.4050, L501.9985, L501.9520, L100.0100, L500.4100 #### [facility] [address] [place], [address] Hemoglobin A1con 08-22-2024 HbA1c (Bld) [Mass fraction] 5.4 % Normal 3.8-5.6 [facility] Comment on above: Result Comment: Norm al < 5.7 % Prediabetic 5.7 - 6.4 % Diabetic >or= 6.5 % Please note range changes. Performed By: #### L 3110.0500, L400.2010, L500.4050, L501.9985, L501.9520, L100.0100, L500.4100 #### [facility] [address] [place], [address] Lipid Profileon 08-22-2024 Cholesterol [Mass/Vol] 197 mg/dL Normal 200 [facility] Comment on above: Result Comment: <200 mg/dL Desirable 200-240 mg/dL Borderline >240 mg/dL High Risk Performed By: #### L 3110.0500, L400.2010, L500.4050, L501.9985, L501.9520, L100.0100, L500.4100 #### [facility] [address] [place], [address] Cholesterol in HDL [Mass/Vol] 49 mg/dL Normal [facility] Comment on above: Result Comment: The drugs N-Acetylcysteine and Metamizole may falsely depress this assay. Reference Range HDL <40 mg/dL Low HDL Cholesterol HDL >or= 60 mg/dL High HDL Cholesterol Performed By: #### L 3110.0500, L400.2010, L500.4050, L501.9985, L501.9520, L100.0100, L500.4100 #### [facility] [address] [place], [address] Cholesterol in LDL [Mass/Vol] 116 mg/dL Normal 0-130 [facility] Comment on above: Performed By: #### L 3110.0500, L400.2010, L500.4050, L501.9985, L501.9520, L100.0100, L500.4100 #### [facility] [address] [place], [address] Cholesterol in VLDL [Mass/Vol] 32 mg/dL Normal 5-40 [facility] Comment on above: Performed By: #### L 3110.0500, L400, L500.4050, L501.9985, L501.9520, L100.0100, L500.4100 #### [facility] [address] [place], [address] Triglyceride [Mass/Vol] 161 mg/dL Normal [facility] Comment on above: Result Comment: The drugs N-Acetylcysteine and Metamizole may falsely depress this assay. Serum Triglycerides Reference Interval Normal <150 mg/dL Borderline high 150 - 199 mg/dL High 200 - 499 mg/dL Very High > or = 500 mg/dL Performed By: #### L 3110.0500, L400.2010, L500.4050, L501.9985, L501.9520, L100.0100, L500.4100 #### [facility] [address] [place], [address] Thyroid Stim Hormone (TSH)on 08-22-2024 TSH 0.629 uIU/mL Normal 0.358-3.740 [facility] Comment on above: Performed By: #### L 3110.0500, L400.2010, L500.4050, L501.9985, L501.9520, L100.0100, L500.4100 #### [facility] [address] [place], [place], [id number] Urinalysis, Routine (Dipstic k)on 08-22-2024 Color (U) Yellow Normal Yellow [facility] Comment on above: Order Comment: CLEAN CATCH Performed By: #### L 3110.0500, L400.2010, L500.4050, L501.9985, L501.9520, L100.0100, L500.4100 #### [facility] [address] [place], [address] BILIRUBIN URINE Negative Normal Negative [facility] Comment on above: Order Comment: CLEAN CATCH Performed By: #### L 3110.0500, L400.2010, L500.4050, L501.9985, L501.9520, L100.0100, L500.4100 #### [facility] [address] [place], [address] Clarity (U) Clear Normal Clear [facility] Comment on above: Order Comment: CLEAN CATCH Performed By: #### L 3110.0500, L400.2010, L500.4050, L501.9985, L501.9520, L100.0100, L500.4100 #### [facility] [address] [place], [address] GLUCOSE, UR Normal Normal Normal [facility] Comment on above: Order Comment: CLEAN CATCH Performed By: #### L 3110.0500, L400.2010, L500.4050, L501.9985, L501.9520, L100.0100, L500.4100 #### [facility] [address] [place], [address] KETONE UR Negative Normal Negative [facility] Comment on above: Order Comment: CLEAN CATCH Performed By: #### L 3110.0500, L400.2010, L500.4050, L501.9985, L501.9520, L100.0100, L500.4100 #### [facility] [address] [place], [address] LEUK ESTERASE 25 /ul Abnormal Negative [facility] Comment on above: Order Comment: CLEAN CATCH Performed By: #### L 3110.0500, L400.2010, L500.4050, L501.9985, L501.9520, L100.0100, L500.4100 #### [facility] [address] [place], [address] Nitrite Ql (U) Negative Normal Negative [facility] Comment on above: Order Comment: CLEAN CATCH Performed By: #### L 3110.0500, L400.2010, L500.4050, L501.9985, L501.9520, L100.0100, L500.4100 #### [facility] [address] [place], [address] OCCULT BLOOD-UR 10 /ul Abnormal Negative [facility] Comment on above: Order Comment: CLEAN CATCH Performed By: #### L 3110.0500, L400.2010, L500.4050, L501.9985, L501.9520, L100.0100, L500.4100 #### [facility] [address] [place], [address] pH UR 6.0 Normal 5.0 - 8.0 [facility] Comment on above: Order Comment: CLEAN CATCH Performed By: #### L 3110.0500, L400.2010, L500.4050, L501.9985, L501.9520, L100.0100, L500.4100 #### [facility] [address] [place], [address] PROT DIPSTX 15 mg/dl Abnormal Negative [facility] Comment on above: Order Comment: CLEAN CATCH Performed By: #### L 3110.0500, L400.2010, L500.4050, L501.9985, L501.9520, L100.0100, L500.4100 #### [facility] [address] [place], [address] SP.GR. DIPSTX 1.015 Normal 1.002-1.030 [facility] Comment on above: Order Comment: CLEAN CATCH Performed By: #### L 3110.0500, L400.2010, L500.4050, L501.9985, L501.9520, L100.0100, L500.4100 #### [facility] [address] [place], [address] UROBILI Normal Normal Normal [facility] Comment on above: Order Comment: CLEAN CATCH Performed By: #### L 3110.0500, L400.2010, L500.4050, L501.9985, L501.9520, L100.0100, L500.4100 #### [facility] [address] [place], [address] Absolute lymphocyte countOrd ered By: Garrett Delaney on 05-18-2023 Lymphocytes Auto (Unsp spec) [#/Vol] 1.75 10*3/uL 0.83-4.51 [facility] Basophil percentageOrdered B y: Garrett Delaney on 05-18-2023 Basophils/100 WBC (Bld) 0.5 % 0-1 [facility] Bilirubin [Mass/Vol] 0.50 mg/dL 0.20-1.00 [facility] Comment on above: For patients on eltr ombopag therapy, use of Dimension Ragland TBIL is not recommended. Chloride [Moles/Vol] 103 mmol/L 98-107 [facility] Cholesterol [Mass/Vol] 221 mg/dL <200 [facility] Comment on above: <200 mg/dL Desirable 200-240 mg/dL Borderline >240 mg/dL High Risk Eosinophils/100 WBC (Bld) 2.7 % 0-5 [facility] Glucose [Mass/Vol] 108 mg/dL 74-106 [facility] Comment on above: Fasting Glucose resu lt from 100 to 125 mg/dL suggests IMPAIRED HOMEOSTASIS per A.D.A. criteria. Neutrophils (Bld) [#/Vol] 4.1 10*3/uL 2.0-7.7 [facility] Neutrophils/100 WBC (Bld) 61.7 % 47-70 [facility] Potassium [Moles/Vol] 4.1 mmol/L 3.5-5.1 [facility] Protein [Mass/Vol] 7.4 g/dL 6.4-8.2 [facility] Sodium [Moles/Vol] 139 mmol/L 136-145 [facility] Triglyceride [Mass/Vol] 224 mg/dL <199 [facility] Comment on above: The drugs N-Acetylcy steine and Metamizole may falsely depress this assay.Serum Triglycerides Reference Interval Normal <150 mg/dL Borderline high 150 - 199 mg/dL High 200 - 499 mg/dL Very High > or = 500 mg/dL WBC (Bld) [#/Vol] 6.6 10*3/uL 4.4-11.0 [facility] Blood erythrocytes count (nu mber/volume)Ordered By: Garrett Delaney on 05-18-2023 RBC (Bld) [#/Vol] 5.21 10*6/uL 4.6-6.2 [facility] Blood hemoglobin measurement (mass/volume)Ordered By: Garrett Delaney on 05-18-2023 Hemoglobin (Bld) [Mass/Vol] 15.7 g/dL 13.0-16.5 [facility] Blood lymphocytes/100 leukoc ytesOrdered By: [facility] on 05-18-2023 Lymphocytes/100 WBC (Bld) 26.4 % 19-41 [facility] Blood monocytes/100 leukocyt esOrdered By: [facility] on 05-18-2023 Monocytes/100 WBC (Bld) 8.4 % 0-10 [facility] Blood platelet mean volumeOr dered By: [facility] on 05-18-2023 Platelet mean volume (Bld) [Entitic vol] 9.5 fL 6.2-12.0 [facility] Determination of erythrocyte mean corpuscular volume (MCV)Ordered By: [facility] on 05-18-2023 MCV (RBC) [Entitic vol] 87.7 fL 80-94 [facility] Hematocrit Auto (Bld) [Volum e fraction]Ordered By: [facility] on 05-18-2023 Hematocrit (Bld) [Volume fraction] 45.7 % 40-54 [facility] - Chemistry and C hemistry - challengeOrdered By: [facility] on 05-18-2023 ALP [Catalytic activity/Vol] 63 U/L 45-117 [facility] ALT [Catalytic activity/Vol] 39 U/L 16-61 [facility] CO2 [Moles/Vol] 29.0 mmol/L 21.0-32.0 [facility] Globulin (S) [Mass/Vol] 3.4 g/dL 2.2-4.2 [facility] Urea nitrogen/Creatinine [Mass ratio] 15.6 mg/mg 10-20 [facility] - Hematology and Cell countsOrdered By: [facility] on 05-18-2023 Erythrocyte distribution width (RBC) [Entitic vol] 38.6 fL 35.1-43.9 [facility] Erythrocyte distribution width (RBC) [Ratio] 12.0 % 11.6-14.6 [facility] Immature granulocytes/100 WBC (Bld) 0.300 % 0.0-0.9 [facility] Comment on above: IG% - Immature Granu locytes (promyelocytes, myelocytes and metamyelocytes) > 1% indicates that a LEFT SHIFT is Present. MCH (RBC) [Entitic mass] 30.1 pg 27.0-32.0 [facility] Nucleated RBC/100 WBC (Bld) [Ratio] 0 % 0-5 [facility] MCHC Auto (RBC) [Mass/Vol]Or dered By: Garrett Delaney on 05-18-2023 MCHC (RBC) [Mass/Vol] 34.4 g/dL 32-36 [facility] No Panel InformationOrdered By: Garrett Delaney on 05-18-2023 Estimated GFR (MDRD) Amer 98 mL/min >60 [facility] Comment on above: GFR Calc Estimated GFR (MDRD) Non-Af Amer 81 mL/min >60 [facility] Comment on above: Non- GFR Calc Thyroid Stimulating Hormone (TSH) 1.93 uIU/mL 0.358-3.74 [facility] Platelets bldOrdered By: William Delaney on 05-18-2023 Platelets (Bld) [#/Vol] 221 10*3/uL 150-450 [facility] Serum or plasma albumin amol urement (mass/volume)Ordered By: Garrett Delaney on 05-18-2023 Albumin [Mass/Vol] 4.0 g/dL 3.2-5.0 [facility] Serum or plasma albumin/glob ulin mass ratioOrdered By: Garrett Delaney on 05-18-2023 Albumin/Globulin [Mass ratio] 1.2 {ratio} 0.9-2.4 [facility] Serum or plasma calcium amol urement (mass/volume)Ordered By: Garrett Delaney on 05-18-2023 Calcium [Mass/Vol] 9.0 mg/dL 8.5-10.1 [facility] Serum or plasma cholesterol in HDL measurement (mass/volume)Ordered By: Garrett Delaney on 05-18-2023 Cholesterol in HDL [Mass/Vol] 40 mg/dL >40 [facility] Comment on above: The drugs N-Acetylcy steine and Metamizole may falsely depress this assay. Reference Range HDL <40 mg/dL Low HDL Cholesterol HDL >or= 60 mg/dL High HDL Cholesterol Serum or plasma cholesterol in VLDL measurement (mass/volume)Ordered By: Garrett Delaney on 05-18-2023 Cholesterol in VLDL [Mass/Vol] 45 mg/dL 5-40 [facility] Serum or plasma creatinine m easurement (mass/volume)Ordered By: Garrett Delaney on 05-18-2023 Creatinine [Mass/Vol] 0.96 mg/dL 0.70-1.30 [facility] Comment on above: The validity of the calculated GFR & GFRAA in patients over 70 years has not been determined. Clinical correlation is essential. Serum or plasma low density lipoprotein (LDL) cholesterol measurement (mass/volume)Ordered By: Garrett Delaney on 05-18-2023 Cholesterol in LDL [Mass/Vol] 136 mg/dL 0-130 [facility] Serum or plasma urea nitroge n measurement (mass/volume)Ordered By: Garrett Delaney on 05-18-2023 Urea nitrogen [Mass/Vol] 15 mg/dL 7-18 [facility] Serum or plasma uric acid me asurement (mass/volume)Ordered By: Garrett Delaney on 05-18-2023 Urate [Mass/Vol] 8.6 mg/dL 3.5-7.2 [facility] Comment on above: The drugs N-Acetylcy steine and Metamizole may falsely depress this assay. Thin prep Papanicolaou smear with manual screeningOrdered By: Garrett Delaney on 05-18-2023 Thin prep Papanicolaou smear with manual screening 18 U/L 15-37 [facility] Thin prep Papanicolaou smear with manual screening 7 5-15 [facility] Whole blood hemoglobin A1c/t otal hemoglobin ratio (mass fraction)Ordered By: Garrett Delaney on 05-18-2023 HbA1c (Bld) [Mass fraction] 5.4 % 3.8-5.6 [facility] Comment on above: Normal < 5.7 % Predi abetic 5.7 - 6.4 % Diabetic >or= 6.5 % Please note range changes. Laboratory - Chemistry and C hemistry - challengeOrdered By: Dr. Delaney on 12-14-2022 Free T4 [Mass/Vol] 1.28 ng/dL 0.76-1.46 [facility] No Panel InformationOrdered By: Dr. Delaney on 12-14-2022 Thyroid Stimulating Hormone (TSH) 3.76 uIU/mL 0.358-3.74 [facility] Basophil percentageOrdered B y: Dr. Delaney on 09-22-2022 Bilirubin [Mass/Vol] 0.60 mg/dL 0.20-1.00 [facility] Comment on above: For patients on eltr ombopag therapy, use of Dimension Ragland TBIL is not recommended. Chloride [Moles/Vol] 101 mmol/L 98-107 [facility] Cholesterol [Mass/Vol] 217 mg/dL <200 [facility] Comment on above: <200 mg/dL Desirable 200-240 mg/dL Borderline >240 mg/dL High Risk Glucose [Mass/Vol] 104 mg/dL 74-106 [facility] Comment on above: Fasting Glucose resu lt from 100 to 125 mg/dL suggests IMPAIRED HOMEOSTASIS per A.D.A. criteria. Potassium [Moles/Vol] 4.1 mmol/L 3.5-5.1 [facility] Protein [Mass/Vol] 7.2 g/dL 6.4-8.2 [facility] Sodium [Moles/Vol] 137 mmol/L 136-145 [facility] Triglyceride [Mass/Vol] 213 mg/dL <199 [facility] Comment on above: The drugs N-Acetylcy steine and Metamizole may falsely depress this assay.Serum Triglycerides Reference Interval Normal <150 mg/dL Borderline high 150 - 199 mg/dL High 200 - 499 mg/dL Very High > or = 500 mg/dL Laboratory - Chemistry and C hemistry - challengeOrdered By: Dr. Delaney on 09-22-2022 ALP [Catalytic activity/Vol] 63 U/L 45-117 [facility] ALT [Catalytic activity/Vol] 27 U/L 16-61 [facility] CO2 [Moles/Vol] 29.0 mmol/L 21.0-32.0 [facility] Free T4 [Mass/Vol] 1.03 ng/dL 0.76-1.46 [facility] Globulin (S) [Mass/Vol] 3.2 g/dL 2.2-4.2 [facility] Urea nitrogen/Creatinine [Mass ratio] 18.6 mg/mg 10-20 [facility] No Panel InformationOrdered By: Dr. Delaney on 09-22-2022 Estimated GFR (MDRD) Amer 97 mL/min >60 [facility] Comment on above: GFR Calc Estimated GFR (MDRD) Non-Af Amer 80 mL/min >60 [facility] Comment on above: Non- GFR Calc Thyroid Stimulating Hormone (TSH) 8.34 uIU/mL 0.358-3.74 [facility] Serum or plasma albumin amol urement (mass/volume)Ordered By: Dr. Delaney on 09-22-2022 Albumin [Mass/Vol] 4.0 g/dL 3.2-5.0 [facility] Serum or plasma albumin/glob ulin mass ratioOrdered By: Dr. Delaney on 09-22-2022 Albumin/Globulin [Mass ratio] 1.2 {ratio} 0.9-2.4 [facility] Serum or plasma calcium amol urement (mass/volume)Ordered By: Dr. Delaney on 09-22-2022 Calcium [Mass/Vol] 9.1 mg/dL 8.5-10.1 [facility] Serum or plasma cholesterol in HDL measurement (mass/volume)Ordered By: Dr. Delaney on 09-22-2022 Cholesterol in HDL [Mass/Vol] 43 mg/dL >40 [facility] Comment on above: The drugs N-Acetylcy steine and Metamizole may falsely depress this assay. Reference Range HDL <40 mg/dL Low HDL Cholesterol HDL >or= 60 mg/dL High HDL Cholesterol Serum or plasma cholesterol in VLDL measurement (mass/volume)Ordered By: Dr. Delaney on 09-22-2022 Cholesterol in VLDL [Mass/Vol] 43 mg/dL 5-40 [facility] Serum or plasma creatinine m easurement (mass/volume)Ordered By: Dr. Delaney on 09-22-2022 Creatinine [Mass/Vol] 0.97 mg/dL 0.70-1.30 [facility] Comment on above: The validity of the calculated GFR & GFRAA in patients over 70 years has not been determined. Clinical correlation is essential. Serum or plasma low density lipoprotein (LDL) cholesterol measurement (mass/volume)Ordered By: Dr. Delaney on 09-22-2022 Cholesterol in LDL [Mass/Vol] 131 mg/dL 0-130 [facility] Serum or plasma urea nitroge n measurement (mass/volume)Ordered By: Dr. Delaney on 09-22-2022 Urea nitrogen [Mass/Vol] 18 mg/dL 7-18 [facility] Thin prep Papanicolaou smear with manual screeningOrdered By: Dr. Delaney on 09-22-2022 Thin prep Papanicolaou smear with manual screening 14 U/L 15-37 [facility] Thin prep Papanicolaou smear with manual screening 7 5-15 [facility] Laboratory - Chemistry and C hemistry - challengeOrdered By: Dr. Delaney on 06-02-2022 Free T4 [Mass/Vol] 1.45 ng/dL 0.76-1.46 [facility] No Panel InformationOrdered By: Dr. Delaney on 06-02-2022 Thyroid Stimulating Hormone (TSH) 1.51 uIU/mL 0.358-3.74 [facility] Absolute lymphocyte counton 03-24-2022 Lymphocytes Auto (Unsp spec) [#/Vol] 1.68 10*3/uL 0.83-4.51 [facility] Work Phone: Basophil percentageon 2021 Basophils/100 WBC (Bld) 0.2 % 0-1 [facility] Work Phone: [phone] Bilirubin [Mass/Vol] 0.70 mg/dL 0.20-1.00 [facility] Work Phone: Comment on above: For patients on eltr ombopag therapy, use of Dimension Ragland TBIL is not recommended. Chloride [Moles/Vol] 103 mmol/L 98-107 [facility] Work Phone: Cholesterol [Mass/Vol] 194 mg/dL <200 [facility] Work Phone: Comment on above: <200 mg/dL Desirable 200-240 mg/dL Borderline >240 mg/dL High Risk Eosinophils/100 WBC (Bld) 2.9 % 0-5 [facility] Work Phone: Glucose [Mass/Vol] 108 mg/dL 74-106 [facility] Work Phone: Comment on above: Fasting Glucose resu lt from 100 to 125 mg/dL suggests IMPAIRED HOMEOSTASIS per A.D.A. criteria. Neutrophils (Bld) [#/Vol] 3.1 10*3/uL 2.0-7.7 [facility] Work Phone: [phone] Neutrophils/100 WBC (Bld) 56.9 % 47-70 [facility] Work Phone: [phone] Potassium [Moles/Vol] 4.1 mmol/L 3.5-5.1 [facility] Work Phone: Protein [Mass/Vol] 7.2 g/dL 6.4-8.2 [facility] Work Phone: Sodium [Moles/Vol] 137 mmol/L 136-145 [facility] Work Phone: Triglyceride [Mass/Vol] 193 mg/dL <199 [facility] Work Phone: Comment on above: The drugs N-Acetylcy steine and Metamizole may falsely depress this assay.Serum Triglycerides Reference Interval Normal <150 mg/dL Borderline high 150 - 199 mg/dL High 200 - 499 mg/dL Very High > or = 500 mg/dL WBC (Bld) [#/Vol] 5.5 10*3/uL 4.4-11.0 [facility] Work Phone: Blood erythrocytes count (nu mber/volume)on 03-24-2022 RBC (Bld) [#/Vol] 5.17 10*6/uL 4.6-6.2 [facility] Work Phone: [phone] Blood hemoglobin measurement (mass/volume)on 03-24-2022 Hemoglobin (Bld) [Mass/Vol] 15.4 g/dL 13.0-16.5 [facility] Work Phone: Blood lymphocytes/100 leukoc yteson 03-24-2022 Lymphocytes/100 WBC (Bld) 30.8 % 19-41 [facility] Work Phone: Blood monocytes/100 leukocyt eson 03-24-2022 Monocytes/100 WBC (Bld) 9.0 % 0-10 [facility] Work Phone: Blood platelet mean volumeon 03-24-2022 Platelet mean volume (Bld) [Entitic vol] 9.3 fL 6.2-12.0 [facility] Work Phone: Determination of erythrocyte mean corpuscular volume (MCV)on 03-24-2022 MCV (RBC) [Entitic vol] 86.3 fL 80-94 [facility] Work Phone: Hematocrit Auto (Bld) [Volum e fraction]on 03-24-2022 Hematocrit (Bld) [Volume fraction] 44.6 % 40-54 [facility] Work Phone: Laboratory - Chemistry and C hemistry - challengeon 03-24-2022 ALP [Catalytic activity/Vol] 75 U/L 45-117 [facility] Work Phone: ALT [Catalytic activity/Vol] 25 U/L 16-61 [facility] Work Phone: CO2 [Moles/Vol] 29.0 mmol/L 21.0-32.0 [facility] Work Phone: Free T4 [Mass/Vol] 1.62 ng/dL 0.76-1.46 [facility] Phone: Globulin (S) [Mass/Vol] 3.4 g/dL 2.2-4.2 [facility] Work Phone: Urea nitrogen/Creatinine [Mass ratio] 18.8 mg/mg 10-20 [facility] Work Phone: Laboratory - Hematology and Cell countson 03-24-2022 Erythrocyte distribution width (RBC) [Entitic vol] 38.0 fL 35.1-43.9 [facility] Work Phone: Erythrocyte distribution width (RBC) [Ratio] 11.9 % 11.6-14.6 [facility] Work Phone: Immature granulocytes/100 WBC (Bld) 0.200 % 0.0-0.9 [facility] Work Phone: Comment on above: IG% - Immature Granu locytes (promyelocytes, myelocytes and metamyelocytes) > 1% indicates that a LEFT SHIFT is Present. MCH (RBC) [Entitic mass] 29.8 pg 27.0-32.0 [facility] Work Phone: Nucleated RBC/100 WBC (Bld) [Ratio] 0 % 0-5 [facility] Work Phone: MCHC Auto (RBC) [Mass/Vol]on 03-24-2022 MCHC (RBC) [Mass/Vol] 34.5 g/dL 32-36 [facility] Work Phone: No Panel Informationon 03-24 Estimated GFR (MDRD) Amer 113 mL/min >60 [facility] Work Phone: Comment on above: GFR Calc Estimated GFR (MDRD) Non-Af Amer 93 mL/min >60 [facility] Work Phone: Comment on above: Non- GFR Calc Prostate Specific Antigen Screen 3.79 ng/mL 0.00-4.00 [facility] Work Phone: Comment on above: This test was perfor med using the TPSA assay method for the[facility] system. Values obtained with differentassay methods cannot be used interchangably.When changing PSA assays in the course of monitoring apatient, additional sequential testing should be carriedout to confirm baseline values. Thyroid Stimulating Hormone (TSH) 0.95 uIU/mL 0.358-3.74 [facility] Work Phone: Platelets bldon 03-24-2022 Platelets (Bld) [#/Vol] 196 10*3/uL 150-450 [facility] Work Phone: [phone] Serum or plasma albumin amol urement (mass/volume)on 03-24-2022 Albumin [Mass/Vol] 3.8 g/dL 3.2-5.0 [facility] Work Phone: Serum or plasma albumin/glob ulin mass ratioon 03-24-2022 Albumin/Globulin [Mass ratio] 1.1 {ratio} 0.9-2.4 [facility] Work Phone: Serum or plasma calcium amol urement (mass/volume)on 03-24-2022 Calcium [Mass/Vol] 9.2 mg/dL 8.5-10.1 [facility] Work Phone: Serum or plasma cholesterol in HDL measurement (mass/volume)on 03-24-2022 Cholesterol in HDL [Mass/Vol] 42 mg/dL >40 [facility] Work Phone: Comment on above: The drugs N-Acetylcy steine and Metamizole may falsely depress this assay. Reference Range HDL <40 mg/dL Low HDL Cholesterol HDL >or= 60 mg/dL High HDL Cholesterol Serum or plasma cholesterol in VLDL measurement (mass/volume)on 03-24-2022 Cholesterol in VLDL [Mass/Vol] 39 mg/dL 5-40 [facility] Work Phone: Serum or plasma creatinine m easurement (mass/volume)on 03-24-2022 Creatinine [Mass/Vol] 0.85 mg/dL 0.70-1.30 [facility] Work Phone: Comment on above: The validity of the calculated GFR & GFRAA in patients over 70 years has not been determined. Clinical correlation is essential. Serum or plasma low density lipoprotein (LDL) cholesterol measurement (mass/volume)on 03-24-2022 Cholesterol in LDL [Mass/Vol] 113 mg/dL 0-130 [facility] Work Phone: Serum or plasma urea nitroge n measurement (mass/volume)on 03-24-2022 Urea nitrogen [Mass/Vol] 16 mg/dL 7-18 [facility] Work Phone: Thin prep Papanicolaou smear with manual screeningon 03-24-2022 Thin prep Papanicolaou smear with manual screening 10 U/L 15-37 [facility] Work Phone: Thin prep Papanicolaou smear with manual screening 5 5-15 [facility] Work Phone: Whole blood hemoglobin A1c/t otal hemoglobin ratio (mass fraction)on 03-24-2022 HbA1c (Bld) [Mass fraction] 5.6 % 3.8-5.6 [facility] Work Phone: Comment on above: Normal < 5.7 % Predi abetic 5.7 - 6.4 % Diabetic >or= 6.5 % Please note range changes. Hemoglobin A1con 12-07-2019 HbA1c (Bld) [Mass fraction] 5.3 % Normal 4.3-5.6 [facility] Comment on above: Performed By: #### H BA1C #### [facility] Routine Lab [address] [place], [place] [id number] HbA1c (Bld) [Mass fraction] 105 mg/dL Normal [facility] Comment on above: Performed By: #### H BA1C #### [facility] Routine Lab [address] [place], [place] [address] Hemoglobin A1con 06-13-2019 HbA1c (Bld) [Mass fraction] 5.5 % Normal 4.3-5.6 [facility] Comment on above: Performed By: #### H BA1C #### [facility] Routine Lab [address] [place], [place] [address] HbA1c (Bld) [Mass fraction] 111 mg/dL Normal [facility] Comment on above: Performed By: #### H BA1C #### [facility] Routine Lab [address] [place], [place] [address] Basic Metabolic Panelon -0 Anion gap [Moles/Vol] 11 mmol/L [facility], [place] Calcium [Mass/Vol] 9.0 mg/dL 8.4 - 10. 4 mg/dL [facility], [place] Chloride [Moles/Vol] 102 mmol/L 98 - 10 7 mmol/L [place] CO2 [Moles/Vol] 22 mmol/L 22 - 30 mmol/L [place] Creatinine [Mass/Vol] 0.82 mg/dL 0.52 - 1.25 mg/dL [place] EGFR IF NonAfrican Finnish >60.0 >60 mL/min [place] Comment on above: Source- MDRD equatio n with creatinine calibration to IDMS(NKDEP) eGFR not recommended for drug dose adjustment GFR/1.73 sq M predicted among blacks MDRD (S/P/Bld) [Vol rate/Area] mL/min/{1.73_m2} >60 mL/min [place] Glucose [Mass/Vol] 108 mg/dL High 70 - 100 mg/dL [place], [place] Interpretation and review of laboratory results Abnormal [place] Potassium [Moles/Vol] 4.3 mmol/L 3.5 - 5.1 mmol/L [place] Sodium [Moles/Vol] 136 mmol/L 135 - 145 mmol/L [place] Urea nitrogen [Mass/Vol] 15 mg/dL 7 - 20 mg/d L [place] Test Performed by [facility], [address] [place] [id number] [place] [address] CBC Auto Differentialon 09-0 Absolute Baso # 0.0 10*3/uL 0 - 0.2 10*3/uL [place] Absolute Neut # 4.4 10*3/uL 1.8 - 7 10*3/uL [place] Basophils/100 WBC (Bld) 0.3 % 0 - 2 % [place] Eosinophils (Bld) [#/Vol] 0.2 10*3/uL 0 - 0.5 10*3/uL [place] Eosinophils/100 WBC (Bld) 3.2 % 1 - 6 % [place] Erythrocyte distribution width (RBC) [Ratio] 12.9 % 11.5 - 14.5 % [place] Granulocytes/100 WBC (Bld) 66.6 % 40 - 80 % [place] Hematocrit (Bld) [Volume fraction] 40.7 % 40 - 52 % [place] Hemoglobin (Bld) [Mass/Vol] 14.5 g/dL 13 - 18 g/dL [place] Lymphocytes (Bld) [#/Vol] 1.3 10*3/uL 1 - 4.3 10*3/uL [place] Lymphocytes/100 WBC (Bld) 20.3 % 20 - 40 % [place] MCH (RBC) [Entitic mass] 31.0 pg 26 - 34 pg [place] MCHC (RBC) [Mass/Vol] 35.6 % 32 - 36 % [place] MCV (RBC) [Entitic vol] 87.2 fL 80 - 98 fL [place] Monocytes (Bld) [#/Vol] 0.6 10*3/uL 0 - 0.8 10*3/uL [place] Monocytes/100 WBC (Bld) 9.6 % 2 - 10 % [place] Platelet mean volume (Bld) [Entitic vol] 7.5 fL 7.4 - 10.4 fL [place] Platelets (Bld) [#/Vol] 176 10*3/uL 140 - 440 10*3/uL [place] RBC (Bld) [#/Vol] 4.66 10*6/uL 4.4 - 5.9 10*6/uL [place] WBC (Bld) [#/Vol] 6.6 10*3/uL 3.6 - 10.7 10*3/uL [place] Test Performed by [facility], [address] [place] [id number] [place] Basic Metabolic Panel w/ Ref crescencio to MGon 03-12-2019 Anion gap [Moles/Vol] 10 mmol/L [place] Calcium [Mass/Vol] 9.3 mg/dL 8.4 - 10. 4 mg/dL [place] Chloride [Moles/Vol] 101 mmol/L 98 - 10 7 mmol/L [place] CO2 [Moles/Vol] 27 mmol/L 22 - 30 mmol/L [place] Creatinine [Mass/Vol] 0.7 mg/dL 0.52 - 1.25 mg/dL [place] EGFR IF NonAfrican [place] >60.0 >60 mL/min [place] Comment on above: Source- MDRD equatio n with creatinine calibration to IDMS(NKDEP) eGFR not recommended for drug dose adjustment GFR/1.73 sq M predicted among blacks MDRD (S/P/Bld) [Vol rate/Area] mL/min/{1.73_m2} >60 mL/min [place] Glucose [Mass/Vol] 112 mg/dL High 70 - 100 mg/dL [place] Interpretation and review of laboratory results Abnormal [place] Potassium [Moles/Vol] 4.3 mmol/L 3.5 - 5.1 mmol/L [place] Sodium [Moles/Vol] 138 mmol/L 135 - 145 mmol/L [place] Urea nitrogen [Mass/Vol] 16 mg/dL 7 - 20 mg/d L [place] Test Performed by [facility], [address] [place] [id number] [place] [address] CBCon 03-12-2019 Erythrocyte distribution width (RBC) [Ratio] 12.9 % 11.5 - 14.5 % [place] Hematocrit (Bld) [Volume fraction] 42.3 % 40 - 52 % [place] Hemoglobin (Bld) [Mass/Vol] 15.3 g/dL 13 - 18 g/dL [place] Interpretation and review of laboratory results Abnormal [place] MCH (RBC) [Entitic mass] 31.1 pg 26 - 34 pg [place] MCHC (RBC) [Mass/Vol] 36.1 % High 32 - 36 % [place] MCV (RBC) [Entitic vol] 86.0 fL 80 - 98 fL [place] Platelet mean volume (Bld) [Entitic vol] 7.4 fL 7.4 - 10.4 fL [place] Platelets (Bld) [#/Vol] 200 10*3/uL 140 - 440 10*3/uL [place] RBC (Bld) [#/Vol] 4.92 10*6/uL 4.4 - 5.9 10*6/uL [place] WBC (Bld) [#/Vol] 10.6 10*3/uL 3.6 - 10.7 10*3/uL [place] Test Performed by [address] [address] [place] Vital Signs Date Time Vital Sign Value Performing Clinician Emerson berry 03-13-2019 09:15-0400 Body Temperature 97.9 [degF] [place] 03-13-2019 09:15-0400 BP Diastolic 63 mm[Hg] [place] 03-13-2019 09:15-0400 BP Systolic 105 mm[Hg] [place] 03-13-2019 09:15-0400 Pulse (Heart Rate) 71 /min [place] 03-13-2019 09:15-0400 Pulse Oximetry 96 % [place] 03-13-2019 09:15-0400 Respiratory Rate 16 /min [place] 03-12-2019 01:00-0400 BMI (Body Mass Index) 26.58 kg/m2 [place] 03-12-2019 01:00-0400 Body weight 81.65 kg [place] 03-12-2019 01:00-0400 Height 175.3 cm [place] Encounters Encounter Date Encounter Type Care Provider Facility Start: 05-23-2025 ambulatory [facility] Facility:[facility] Start: 05-14-2025 Encounter for preprocedural laboratory examination Aamir Zavala [facility] Start: 05-08-2025 End: 05-08-2025 ambulatory [facility] Facility:[facility] Start: 03-09-2025 End: 03-09-[address] Garrett Delaney MD Work Phone: -Cardiovascular Services Start: 03-09-2025 End: 03-09-[address] Dominik Lee MD -Cardiovascular Services Work Phone: Start: 03-09-2025 End: 03-09-2025 ambulatory [facility] Facility:[facility] Start: 02-27-2025 End: 02-27-[address] Garrett Delaney MD Work Phone: -Laboratory Start: 02-27-2025 End: 02-27-[address] Dominik Lee MD -Laboratory Work Phone: Start: 02-27-2025 End: 02-27-2025 ambulatory [facility] Facility:[facility] Start: 09-05-2024 End: 09-05-2024 ambulatory GARRETT COLÓN [facility] Start: 09-03-2024 ambulatory GARRETT COLÓN [facility] Start: 08-22-2024 End: 08-22-2024 [facility] Start: 01-13-2024 ambulatory GARRETT COLÓN [facility] Start: 10-19-2023 ambulatory GARRETT COLÓN [facility] Start: 05-18-2023 End: 05-18-2023 ambulatory [facility] Work Phone: Start: 05-18-2023 End: 05-18-2023 Patient encounter procedure [facility] Work Phone: Start: 12-14-2022 End: 12-14-2022 ambulatory [facility] Work Phone: Start: 12-14-2022 End: 12-14-2022 Patient encounter procedure [facility] Start: 09-22-2022 End: 09-22-2022 ambulatory [facility] Work Phone: Start: 09-22-2022 End: 09-22-2022 Patient encounter procedure [facility] Start: 06-02-2022 End: 06-02-2022 ambulatory [facility] Work Phone: Start: 06-02-2022 End: 06-02-2022 Patient encounter procedure [facility] Start: 03-24-2022 End: 03-24-2022 ambulatory [facility] Work Phone: Start: 03-24-2022 End: 03-24-2022 Patient encounter procedure [facility] Start: 03-11-2019 End: 03-13-2019 Evaluation and management of inpatient Dory Truong Work Phone: [facility] Procedures Date Procedure Procedure Detail Performing Clinician Start: 02-27-[address]25 [address] C antibody measurement Dr. Garrett Delaney MD Work Phone: Comment on above: Reactive: Presumptiv e evidence of antibodies to HCV. Follow CDC recommendations for supplemental testing.Non-Reactive: Antibodies to HCV were not detected; does not exclude the possibility of exposure to HCVReactive Results are presumptive evidence of antibodies to HCV. Follow CDC recommendations for supplemental testing.Order confirmation testing: HCV Quant by PCR testing - HCVPCR #[id number] Non Reactive: < 0.8 Equivocal: >/= 0.8 to < 1.0 Reactive: >/= 1.0The CDC requires that a reactive/equivocal HCV antibody result be sent out for confirmation. HCV Quant by PCR testing. Start: 02-27-2025 Vitamin D, 25-hydrox y measurement Dr. Garrett Delaney MD Work Phone: Comment on above: Vitamin D StatusDefi ciency: <20 ng/mL (50nmol/L)Insufficiency: 20-30 ng/mL (50-75 nmol/L)Sufficiency: 30-100 ng/mL (75-250 nmol/L)Toxicity: >100 ng/mL (>250 nmol/L) Start: 03-13-2019 Basic metabolic pane l calcium total Marielena Leiva Work Phone: Start: 03-13-2019 Blood count complete auto&auto difrntl wbc Marielena Leiva Work Phone: Start: 03-12-2019 BASIC METABOLIC PANE L W/ REFLEX TO MG FOR LOW K Dory Truong Work Phone: Start: 03-12-2019 Blood count complete automated Dory Vigiloub Work Phone: Plan of Treatment Date Care Activity Detail Author Start: 03-09-2025 Abdominal aortic aneurysm screening [facility] Start: 03-12-2020 Creatinine monitoring Creatinine mon [place], [place] Start: 03-12-2020 Potassium monitoring Potassium monit [place], [place] Start: 2012 Pneumococcal 65+ yea rs Vaccine (1 of 2 - PCV13) Pneumococcal 65+ years Vaccine (1 of 2 - PCV13) [place], [place] Initiate Oxygen Ther apy Protocol Initiate Oxygen Therapy Protocol Respiratory Care Routine Daily until discontinued starting 03/11/2019 [place], [place] Comment on above: Daily until disconti nued starting 03/11/2019 Immunizations Immunization Date Immunization Notes Care Provider Fa gaston 03-12-2019 influenza, injectabl e, quadrivalent, preservative free [place], [place] 03-12-2019 tetanus and diphther ia toxoids, adsorbed, preservative free, for adult use (5 Lf of tetanus toxoid and 2 Lf of diphtheria toxoid) [place] 03-12-2019 influenza quadrivale nt split vaccine (FLUZONE;FLUARIX;FLULAVAL; AFLURIA) injection 0.5 mL [place] 03-12-2019 diphtheria and tetan us toxoids, adsorbed for pediatric use [place] Payers Date Payer Category Payer Self-pay [id number] 2024 Self-pay [id number] 2015 Medicare [id number] 1945 Unknown [id number] 2.16.8 [id number] 1945 Unknown [id number] 2.16.8 [id number] 1945 Unknown [id number] 2.16.8 [id number] 1945 Unknown [id number] 2.16.8 [id number] 1945 Unknown [id number] 2.16.8 [id number] Medicare [id number] Unknown [id number] Unknown [id number] Unknown [id number] 2.16.8 [id number] Unknown [id number] 2.16.8 [id number] Unknown [id number] 2.16.8 [id number] Unknown [id number] 2.16.8 [id number] Unknown [id number] 2.16.8 [id number] Unknown [id number] 2.16.8 [id number] Social History Date Type Detail Facility Start: 03-11-2019 End: 06-11-2020 Tobacco smoking status LAIS Current every day smoker [facility] History of tobacco use Cigarette Smoker [place] Start: 03-11-2019 Cigarettes smoked current (pack per day) - Reported [place], [place] Start: 03-11-2019 Alcohol intake Yes [facility] Sex Assigned At Not on file [place] Start: 06-11-2020 End: 06-11-2020 Tobacco smoking status NHIS Unknown if ever smoked [facility] Start: 1945 Sex Assigned At Male [facility] Evaluation note Note Date & Type Note Facility Evaluation note No assessment information availa ble [facility] Work Phone: Reason for referral (narrative) Note Date & Type Note Facility Reason for referral (narrative) No reason for referral information available [facility] Work Phone: Summary Purpose Family History No Family History Records FoundNo Family History Records FoundNo Family History Records Found Advance Directives No Advanced Directives Records FoundLatest Code Status on File Code Status Date Activated Date Inactivated Comments Full Code 03/11/2019 11:27 PM Hospital Course * Ernesto Esquivel MD - 03/13/2019 12:40 PM EDT Hospitalist Discharge Summary Ervin Sanchez : 1945 Admit date: 03/11/2019 Discharge date: 03/13/2019 Admitting Physician: Dory Truong MD Primary Care Physician: Garrett Delaney Visit Status: Admission Code Status: Full Code Discharge Diagnoses: Active Problems: Cellulitis and abscess of hand Resolved Problems: * No resolved hospital problems. * Procedures: none Hospital Course: Pt from home with a cat bite to L index finger - he noted streaking up his forearmand came to the ED - he was placed on zosyn and noted improvement - he was seen by plastic surgery and soaks to the finger were initiated - he did need to undergo surgery at this time and will going home on a course of augmentin and to follow up with his PCP in a week. Consults: Plastic Surgery Discharge Instructions: Diet: DIET GENERAL; Activity: as tolerated Recommended Outpatient Tests: Recommended Follow-up: Garrett Delaney in 1-2 weeks Disposition: Patient discharged in stable condition to Home. Greater than 30 minutes spent discharging the patient and coming up with patient discharge plan. Vitals: BP 105/63 Pulse 71 Temp 97.9 F (36.6 C) (Temporal) Resp 16 Ht 5' 9 (1.753 m) Wt 180 lb (81.6 kg) SpO2 96% BMI 26.58 kg/m Pulse Ox: SpO2 Av.5 % Min: 95 % Max: 96 % Supplemental O2: General appearance: alert and cooperative with exam Lungs: clear to auscultation bilaterally Heart: regular rate and rhythm, S1, S2 normal, no murmur, click, rub or gallop Abdomen: soft, non-tender; bowel sounds normal; no masses, no organomegaly Extremities: extremities normal, atraumatic, no cyanosis or edema Neurologic: No obvious focal neurologic deficits. Discharge Medications: Ervin Sanchez Rebecca Home Medication Instructions JOHN:[id number] Printed on:03/13/19 1240 Medication Information amoxicillin-clavulanate (AUGMENTIN) 875-125 MG per tablet Take 1 tablet by mouth 2 times daily for 8 days aspirin 81 MG tablet Take 81 mg by mouth daily levothyroxine (SYNTHROID) 175 MCG tablet Take 175 mcg by mouth Daily lisinopril (PRINIVIL;ZESTRIL) 10 MG tablet Take 10 mg by mouth daily Multiple Vitamins-Minerals (THERAPEUTIC MULTIVITAMIN-MINERALS) tablet Take 1 tablet by mouth daily vitamin B-12 (CYANOCOBALAMIN) 1000 MCG tablet Take 2,500 mcg by mouth daily vitamin C (ASCORBIC ACID) 500 MG tablet Take 1,000 mg by mouth daily Complexity of Follow up: [] Moderate Complexity: follow up within 7-14 calendar days (48225) [] Severe Complexity: follow up within 7 calendar days (29562) Follow up Testing, Pending results or Referrals at Transitional Care Visit: [] yes [] no Instructions to MA: Please call patient on day after discharge (must document patient contacted within 2 business days of discharge). Follow up questions for MA: 1. Did you get medications filled and taking them as instructed from discharge? 2. Are you following your discharge instructions from your hospital stay? 3. Please confirm patient is scheduled for a follow up appointment within the above time frame. Signed: Ernesto Esquivel MD 03/13/2019, 12:40 PM documented in this encounter History of Present Illness * Yael Whelan DTR - 03/13/2019 10:39 AM EDT Nutrition rescreen completed. Chart reviewed. Patient to be monitored and followed by the diet trim technician. * Jan Cheng MD - 03/13/2019 8:14 AM EDT [facility] Plastic, Reconstructive & Hand Surgery Progress Note PATIENT NAME: Ervin Sanchez TODAY'S DATE: 03/13/2019 SUBJECTIVE: Patient doing well. Resting comfortably. Denies pain in the affected digit. Some tightness with flexion. OBJECTIVE: VITALS: BP 114/65 Pulse 73 Temp 99.2 F (37.3 C) (Temporal) Resp 16 Ht 5' 9 (1.753 m) Wt 180 lb (81.6 kg) SpO2 95% BMI 26.58 kg/m INTAKE/OUTPUT: I/O last 3 completed shifts: In: 170 [I.V.:120; IV Piggyback:50] Out: - No intake/output data recorded. CONSTITUTIONAL: NAD EXTREMITIES: R Hand: normal active ROM, R index finger with mild swelling at middle phalanx, 2 puncture wounds present, mild erythema, forearm lymphangitis resolved, no signs of flexor tenosynovitis ASSESSMENT AND PLAN: Ervin Sanchez is a 74 y.o. male presented with cat bite to R Index finger now improving on ABx - Start hand soaks in warm soapy water three times daily for 15 min each time - Ok to discharge with Augmentin for 10 days - Follow up with Dr Geronimo in the office in 1 week Westley Glass DO PGY Plastic and Reconstructive Surgery 03/13/2019, 8:14 AM Attending Addendum: Able to make full fist finger NTTP No fusiform swelling or pain on AROM/PROM. PIPJ to 90 degrees offlexion Small open Puncture wounds without erythema or purulence Cont soaks until wounds heal Agree with plan to tx for cellulitis, OK to f/u for wound check with Local PCP ( patient is from [facility]). Please call with questions or concerns Jan Cheng MD Hand, Plastic, and Reconstructive Surgery [facility] Department of Orthopedics * Gene Geronimo MD - 03/12/2019 7:17 PM EDT PLASTIC SURGERY & HAND SURGERY STAFF NOTE (Covering this weekend for Dr. Cheng) Consult noted, chart reviewed. IMP: 74 yo M admitted for cat bite infection R IF with associated cellulitis of R hand and R UE. Transferred from [facility] in [place], [place] late yesterday PM. Much improved today after initiation of IV antibiotic Rx. WBC = 10.6 on admission, repeat CBC from 1830 this evening pending at this time. REC: 1. Continue IV antibiotics for 1-2 days; home on appropriate oral therapy for another 5-7 days. 2. No indication for surgical intervention at this time. 3. F/U as outpatient with local PCP. Please contact me with any other questions or concerns. Thank you, Nahum Geronimo MD Pager: [phone] * Marielena Leiva MD - 03/12/2019 2:17 PM EDT Hospitalist Progress Note 03/12/2019 2:17 PM [phone]: Please page me for patient care issues. [phone]: Please page [facility] Hospitalist for any issues. Subjective: Admit Date: 03/11/2019 PCP: Garrett Delaney Room#: [id number] Interval History: Patient seen and examined No new event overnight patient denies any pain in the right index finger. Draining pus from the right index finger. No chest pain shortness of breath. DIET GENERAL; Patient Vitals for the past 96 hrs (Last 3 readings): Weight 03/12/19 0100 180 lb (81.6 kg) Medications: aspirin 81 mg Oral Daily levothyroxine 175 mcg Oral Daily lisinopril 10 mg Oral Daily sodium chloride flush 10 mL Intravenous 2 times per day enoxaparin 40 mg Subcutaneous Daily piperacillin-tazobactam 3.375 g Intravenous Q8H LABS: CBC: Recent Labs 03/12/19 011 WBC 10.6 RBC 4.92 HGB 15.3 HCT 42.3 MCV 86.0 RDW 12.9 PLT 200 BMP: Recent Labs 03/12/19 011 NA 138 K 4.3 CL 101 CO2 27 BUN 16 CREATININE 0.70 GLUCOSE 112* CALCIUM 9.3 ANIONGAP 10 LIVER PROFILE:No results for input(s): AST, ALT, BILITOT, ALKPHOS, LABALBU, PROT in the last 72 hours. PT/INR: No results for input(s): PROTIME, INR in the last 72 hours. CARDIAC ENZYMES: No results for input(s): TROPONINI in the last 72 hours. Procalcitonin: No results found for: PROCAL Objective: Vitals: BP 112/64 Pulse 72 Temp 97.7 F (36.5 C) (Temporal) Resp 16 Ht 5' 9 (1.753 m) Wt 180 lb (81.6 kg) SpO2 96% BMI 26.58 kg/m Pulse Ox: SpO2 Av % Min: 96 % Max: 96 % Supplemental O2: General appearance: No apparent distress, HEENT: Eyes: No scleral icterus No pallor Oral: Tongue is semi-moist Cardiovascular: S1S2 heard, RRR Respiratory: Clear to auscultation bilaterally DAbdomen: Soft, non-tender, non-distended with normal bowel sounds. Musculoskeletal: No obvious deformities seen Skin: No visible rashes Neurology- no focal neurology,Awake alert Extremity- no peripheral edema both lower extremities right index finger edema, erythema noted. Small open wound with pus draining Assessment Cellulitis/abscess secondary to cat bite cat bite hypertension chronic obstructive pulmonary disease hypothyroidism Plan Seen by plastic surgery covering for hand surgery. Recommended IV antibiotic recommended no intervention at this time continue IV Zosyn pending cultures pain is controlled continue Synthroid result treatments p.r.n. no fever, no leukocytosis those symptoms active drainage of pus in the right index finger will On DVT/ GI prophylaxis Labs ordered for AM Patient was informed about all work up and treatment plan Discussed with nursing staff Advance Directive: Full Code Discharge planning: MARIELENA LEIVA MD Division of Hospitalist Medicine Inpatient Medical Services PAGER: [phone] documented in this encounter Assessments Diagnosis Cellulitis and abscess of hand Cellulitis and abscess of hand, except fingers and thumb Chief Complaint and Reason for Visit Chief Complaint Admit Date Abdominal aortic aneurysm, without ruptu re, unspec March 09, 2025 8:51am Chief Complaint Admit Date Abdominal aortic aneurysm, without ruptu re, unspec March 09, 2025 8:51am SCREENING March 09, 2025 9:01am Additional Source Comments (unrecognized sect ion and content) No Status Records FoundNo Status Records FoundNo Status Records Found INFORMATION SOURCE (unrecogn ized section and content) DATE CREATED AUTHOR 12/07/2019 [facility] DATE CREATED AUTHOR AUTHOR'S ORGANIZ ATION 09/07/[address] [facility] DATE CREATED AUTHOR AUTHOR'S ORGANIZ ATION 05/15/2025 [facility] Goals (unrecognized section and content) Goals may be documented in a n alternate sectionGoals may be documented in an alternate sectionGoals may be documented in an alternate sectionGoals may be documented in an alternate sectionGoals may be documented in an alternate sectionGoals may be documented in an alternate sectionGoals may be documented in an alternate section Care Teams (unrecognized sec tion and content) Team Status: Active Member Role Status Dates Dr. Garrett Delaney MD Family Provider Active Dr. Garrett Delaney MD Primary Care Provider Active Team Status: Inactive Member Role Status Dates Dr. Garrett Delaney MD Primary Care Prov ider, Attending Provider, Referring Provider Active Team Status: Active Member Role/Relationship Status Dates Dr. Dominik Lee MD Primary Care Provider Active Team Status: Inactive Member Role/Relationship Status Dates Dr. Garrett Delaney MD Primary Care Provider Active Start: February 27, 2025 End: February 27, 2025 Dr. Dominik Lee MD Attending Provider Active Start: February 27, 2025 End: February 27, 2025 Dr. Dominik Lee MD Referring Provider Active Start: February 27, 2025 End: February 27, 2025 Team Status: Active Member Role/Relationship Status Dates Dr. Dominik Lee MD Primary Care Provider Active Start: March 09, 2025 Dr. Dominik Lee MD Attending Provider Active Start: March 09, 2025 Dr. Dominik Lee MD Referring Provider Active Start: March 09, 2025 Team Status: Active Member Role/Relationship Status Dates Dr. Dominik Lee MD Primary care physician Active Team Status: Inactive Member Role/Relationship Status Dates Dr. Garrett Delaney MD Primary care physician Active Start: February 27, 2025 End: February 27, 2025 Dr. Dominik Lee MD Attending physician Active Start: February 27, 2025 End: February 27, 2025 Dr. Dominik Lee MD Referring Provider Active Start: February 27, 2025 End: February 27, 2025 Team Status: Inactive Member Role/Relationship Status Dates Dr. Dominik Lee MD Primary care physician Active Start: March 09, 2025 End: March 09, 2025 Dr. Dominik Lee MD Attending physician Active Start: March 09, 2025 End: March 09, 2025 Dr. Dominik Lee MD Referring Provider Active Start: March 09, 2025 End: March 09, 2025 Team Status: Active Member Role/Relationship Status Dates Dr. Maximo Head MD Attending physician Active Start: March 09, 2025 Dr. Dominik Lee MD Referring Provider Active Start: March 09, 2025 FOR RECORDS PERTAINING TO PATIENTS WHO ARE OR HAVE BEEN ENROLLED IN A CHEMICAL DEPENDENCY/SUBSTANCEABUSE PROGRAM, SOME INFORMATION MAY BE OMITTED. This clinical summary was aggregated from multiple sources. Caution should be exercised in using it in the provision of clinical care. This summary normalizes information from multiple sources, and as a consequence, information in this document may materially change the coding, format and clinical context of patient data. In addition, data may be omitted in some cases. CLINICAL DECISIONS SHOULD BE BASED ON THE PRIMARY CLINICAL RECORDS. [facility] [employer] provides no warranty or guarantee of the accuracy or completeness of information in this document.
[2025-05-23] MEDS: Lactated Ringers 1,000 ML 15 ML IV ×2 (07:03→09:38)
--- NOTE | 2025-05-23 07:35 | PRE.ANES_ITS ---
ASA Classification* ASA Classification ASA Classification: 2 Assessment & Plan Anesthesia* Anesthesia Assessment Anesthesia Assessment: Discussed sedation and/or anesthesia options, risks, benefits, and alternatives with patient/parents/legal guardian/POA. Questions invited. The patient/parents/legal guardian/POA seems to understand and agrees to proceed with anesthesia plan. Reviewed the physical assessment, medical history, allergy history and patient home medications list prior to surgery/procedure/anesthetic and documented any changes. Performed airway and anesthesia risk assessments. Anesthesia Type Anesthesia Type: General History Source History Obtained from:: Patient and Chart Anesthesia Focused Assessment* Temperature: 97.6 F Pulse Rate: 84 Blood Pressure: 128/76 Respiratory Rate: 16 Pulse Ox: 96 Oxygen Delivery Method: Room Air Airway Assessment Mouth opens: >3 cm Mallampati Score: IV Teeth Condition: Caps/Crowns (Patient has a couple crowns. They are tight.) Neck Range of motion (ROM): Limited ROM (Slight Decrease) Labs Anesthesia Preop lab: CBC WBC, (4.4-11.0) 8.2 K/mm3 05/08/25, 14:51 RBC, (4.6-6.2) 4.91 M/mm3 05/08/25, 14:51 Hgb, (13.0-16.5) 15.1 g/dL 05/08/25, 14:51 Hct, (40-54) 42.5 % 05/08/25, 14:51 Plt Count, (150-450) 193 K/mm3 05/08/25, 14:51 CHEMISTRY Potassium, (3.3-5.1) 4.3 mmol/L 05/08/25, 14:51 Sodium, (133-145) 132 mmol/L L 05/08/25, 14:51 BUN, (4-19) 16 mg/dL 05/08/25, 14:51 Creatinine, (0.70-1.20) 0.73 mg/dL 05/08/25, 14:51 Glucose, (70-99) 103 mg/dL H 05/08/25, 14:51 TSH, (0.300-4.200) 0.846 uIU/mL 02/27/25, 15:55 COAG Pre-Assessment Diagnosis/Proposed Procedure Planned Operative Procedure(s): TURP Anesthesia History 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 When Was Last Pacemaker Check QUESTION #4 FULL TEXT: You/Your Family Experience fever (hyperthermia) with Anesthesia Last Oral Intake Last Oral intake: Last Oral Intake NPO since 05:00 05/23/25 06:56 Meds taken in AM with sips of Yes 05/23/25 06:56 water? 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 Female No 05/21/25 08:28 HX of Motion Sickness No 05/21/25 08:28 HX of N/V After Surgery No 05/21/25 08:28 Non-Smoker No 05/21/25 08:28 Duration of Surgery greater Yes 05/21/25 08:28 than 60 minutes Number of Risk Factors 1 05/21/25 08:28 PONV Score Low Risk 05/21/25 08:28 Height & Weight Height & Weight: Anesthesia: Height & Weight Height 5 ft 9 in 05/23/25 06:56 Weight: 81.193 kg 05/23/25 06:56 Body Mass Index (BMI) 26.4 05/23/25 06:56 Respiratory Assessment Respiratory Assessment - 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 Has anyone observed you stop No 05/21/25 08:28 breathing during sleep? STOP Results Negative 05/21/25 08:28 QUESTION #5 FULL TEXT : Do you snore loudly (louder than talking or can be heard through closed doors)? 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 Specify any problems Hx of Preganancy in last 3 N/A 05/21/25 08:28 Months Nurse Filling Out Transfusion DSCHRIBER 05/21/25 08:28 & Questions: Date: 05/21/25 05/21/25 08:28 Time: 08:30 05/21/25 08:28 Patient unable to answer at this time (ie. 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: /Reproductive Hx- grades 7 and 8 teacher Hx Now No 05/21/25 08:28 Gestational Age (in weeks): EDC: Hx Hx Para Hx Section SAB No 05/21/25 08:28 Does the father of the baby or his family experience fever w Father of the baby Malignant Hypertension history comment Active Medications Active Medications: Current Medications Generic Name Dose Route Start Last Admin Trade Name Freq PRN Reason Stop Dose Admin Lactated Ringer's 1,000 mls @ 15 mls/hr 05/23/25 06:45 05/23/25 07:03 IV 15 mls/hr .Q48H FEI Administration PFSH Medical History Wears glasses Alcohol use Hx of Bj thyroiditis Thyroid disease Arthritis Prostate disease Restless legs Back pain Gastric reflux COPD (chronic obstructive pulmonary disease) Smoker Hypertension Home Medications ?Medication ?Instructions ?Recorded ?Last Taken ?Type ascorbic acid (vitamin C) 1,000 mg 1,000 mg PO DAILY 1 07/21/24 05/22/25 History tablet,extended release (Vitamin C ER) budesonide-formoterol HFA 160 2 puff inhalation BID 05/22/25 History mcg-4.5 mcg/actuation aerosol inhaler (Symbicort) dutasteride 0.5 mg capsule 0.5 mg PO QHS 05/21/2505/05 History latanoprost 0.005 % eye drops 1 drp LEFT EYE QHS 05/21 Unknown History levothyroxine 150 mcg tablet 150 mcg PO QODAY 05/21/25 05/22/25 History (Synthroid) levothyroxine 175 mcg tablet 175 mcg PO QODAY 05/21/25 05/23/25 History (Synthroid) lisinopril 10 1 tab PO DAILY 05/21/2505/05 History mg-hydrochlorothiazide 12.5 mg tablet pantoprazole 40 mg tablet,delayed 40 mg PO QHS 5 05/22/25 History release tamsulosin 0.4 mg capsule 0.4 mg PO QHS 05/21/2505/22 History Allergy/AdvReac Type Severity Reaction Status Date / Time amoxicillin AdvReac Severe Diarrhea Verified 05/23/25 06:55 clavulanic acid AdvReac Severe Diarrhea Verified 05/23/25 06:55 Surgical History Hx of colonoscopy History of esophagogastroduodenoscopy (EGD) History of cystoscopy History of cystoscopy History of thyroid surgery Hx of arthroscopic knee surgery Hx of inguinal hernia surgery Hx of vasectomy Hx of tonsillectomy Social History Smoking Status: Current every day smoker tobacco type: cigarettes Review of Systems (Anesthesia) ROS Narrative System reviewed and no additional complaints, except as documented. Physical Exam Resp clear to auscultation bilaterally
[2025-05-23] MEDS: Midazolam 2 MG/2 ML Syringe IV (08:10)
[2025-05-23] MEDS: Cefazolin 1 GM/5 ML Vial 2 GM IV (08:12)
[2025-05-23] MEDS: Lidocaine 1% (5 ml sdv) 5 ML Vial IV (08:15)
--- NOTE | 2025-05-23 08:30 | PROS_PTH ---
PATIENT: AYSHA SANCHEZ LOC: MS3 U#:[id number] AGE/SX: 80/M ROOM: [facility] [place] RE05/23/[address]: Dr. Aamir Zavala MD : 1945 BED: 1 DIS: 05/24/2025 SPEC #: [id number] RECD: 05/23/25 11:10 STATUS: LARISA KEVEN #: [id number] STEPHANIE: 05/23/25 08:[address]: Aamir Zavala DEPT: SURGICAL PATHOLOGY RECD BY: Tonio Marcelo ENTERED: 05/23/25 14:32 SP TYPE: TURP OTHR DR: Dr. Dominik Lee MD Tissues: A - Prostate, NOS Procedures: Surgery Specimen Level IV HEADER OPERATION: Cysto, transurethral resection prostate PRE-OP DIAGNOSIS: Benign prostatic hyperplasia with lower urinary tract symptoms, hesitancy of micturition, nocturia TISSUE SUBMITTED: A- Prostate tissue MICROSCOPIC DIAGNOSIS A. Prostate, transurethral resection: - Benign prostatic tissue with glandular and stromal hyperplasia MICROSCOPIC DESCRIPTION Slides are reviewed. GROSS DESCRIPTION A. Received in formalin labeled with the patient's name and date of . Designated as prostate tissue is a <1 g, 2.6 x 1.0 x 0.3 cm aggregate of ward irregular tissue fragments and dark brown-black, somewhat gritty material. Entirely submitted in 1 cassette. MS [id number]
[2025-05-23] MEDS: fentaNYL 100 MCG/2 ML Ampul 200 MCG IV (08:34)
[2025-05-23] MEDS: Lactated Ringers 2,000 ML 2000 ML IV (09:23)
--- NOTE | 2025-05-23 09:37 | PCM.DC ---
Discharge Instructions DC O2, CPAP, BIPAP needs Home O2 Discharge instructions: No Dressing / Incision Discharge Activity: Return to Normal Activity and May Not Drive (while taking narcotic pain medications.) Dressing / Incision Call your doctor if you observe: Fever of 101 or Higher Follow Up Care Please Follow Up With: Aamir Zavala MD When: Call [phone] for an appointment Test Results: Test results from this visit will be discussed in further detail at your follow-up appointment, if applicable. Discharge Plan Admission Primary Reason for Your Visit: turp Attending Provider: Aamir Zavala Primary Care Provider: Dominik Lee Chi Instructions Print Language: Luxembourgish Discharge Orders/Prescriptions Prescriptions: Continued lisinopril-hydrochlorothiazide 10-12.5 mg tablet 1 tab PO DAILY levothyroxine [Synthroid] 150 mcg tablet 150 mcg PO QODAY levothyroxine [Synthroid] 175 mcg tablet 175 mcg PO QODAY Vitamin C 1,000 mg tablet extended release 1,000 mg PO DAILY pantoprazole 40 mg tablet,delayed release (DR/EC) 40 mg PO QHS budesonide-formoterol [Symbicort] 160-4.5 mcg/actuation HFA aerosol inhaler 2 puff INHALATION BID Patient Comments: 1200,QHS latanoprost 0.005 % drops 1 drp LEFT EYE QHS Discontinued tamsulosin 0.4 mg capsule 0.4 mg PO QHS dutasteride 0.5 mg capsule 0.5 mg PO QHS Referrals / Follow Up: Aamir Zavala MD [Med Staff - Active Staff, Urology] Dominik Lee Chi, MD [Primary Care Provider, Geriatrics] Disposition Disposition (needs filled in before D/C Order can be placed): Home, Self Care
--- NOTE | 2025-05-23 09:38 | PCM.OPRPT ---
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: No Type of Anesthesia: General RN Documented Start/Stop Times: Operation Date: 05/23/25 08:30 Case Time Into Pre-Op 05/23/25 06:43 Anesthesia Start 05/23/25 08:10 Into Room 05/23/25 08:10 Out of Pre-Op 05/23/25 08:10 Procedure Start 05/23/25 08:27 Procedure End 05/23/25 09:28 Anesthesia End 05/23/25 09:35 Out of Room 05/23/25 09:35 Procedure Start Time: 08:27 Procedure Stop Time: :28 Select all DRAINS/GRAFTS/IMPLANTS that apply: Drains Drain details: 22 Faroese three-way Sauer Estimated Blood Loss: 2 cc Specimen collected: Yes Description of specimen(s) removed: Prostate tissue Description of surgery: In the preoperative setting I discussed with the patient how the surgery would be done with expect afterwards. We discussed how a prostate resection is done and we discussed the risk of the surgery including, bleeding, infection, retrograde ejaculation, changes with ejaculation or intercourse,. We discussed the possibility that the resection of the prostate may not alleviate his urinary symptoms. We discussed the small risk of developing scar tissue along the urethral channel and strictures. We also discussed the chance of the prostate could grow back and he may need further surgery or treatment in the future for prostate problems. Patient was taken back to the operating room, timeout procedure was performed, he was identified and marked and placed on the operating room table. He underwent general anesthesia. He was placed in dorsolithotomy position. Penis and testicles were prepped and draped in usual sterile fashion. Went into the bladder using the visual obturator with a resectoscope. Once inside the bladder identified the right and left ureteral orifice. I then identified the prostate and the anatomy of the prostate. I marked out the area of the sphincter and the verumontanum was identified. I then proceeded with the prostate resection first resected the median lobe. And then resected the right lobe of the prostate. Then to resect the left lobe of the prostate. I then resected the apical tissue of the prostate. This was a complete resection of all obstructive tissue to improve voiding and relieve obstruction. I then made sure that there was no injury to the sphincter or the verumontanum was still intact. At the end of the resection all the chips were Ellik out of the bladder. I then identified the left and right ureteral orifice and these were confirmed to be in good position and effluxing and not injured. The resectoscope was removed, a 22 Faroese catheter was placed into the bladder on continuous irrigation. And the urine was fairly light pink color and draining normally. He was taken back to the PACU in good condition. CPT 36865 Surgical Findings: Wide resection of the prostate using button Complications Complications: No Admit VTE Documentation VTE Present on Admission: No VTE Mechan Device Prophylaxis: SCD's VTE Pharm Prophylaxis ordered?: No
--- NOTE | 2025-05-23 09:44 | PCM.POST.ANE ---
Anesthesia: Postop Eval I Current Vital Signs Temperature: 97.0 F Pulse Rate: 82 Blood Pressure: 141/75 Respiratory Rate: 20 Pulse Ox: 93 Oxygen Delivery Method: Room Air Assessment Airway patent: Yes Spontaneous unlabored respirations: Yes Mental status: Awake and Calm nausea: No Vomiting: No Anesthesia Complication: No Fluid Hydration Crystalloid volume administer (ml): 1,200 Total IV fluid infused: 1,200 Progress Note Anesthesia document: Postop Eval 1 completed: Yes
[2025-05-23] MEDS: 0.9% Normal Saline (1000mL) 1,000 ML 125 ML IV ×2 (14:01→22:32)
--- NOTE | 2025-05-23 16:41 | POSTOPAN2_ITS ---
Anesthesia Postop Eval I Sum Postop Eval Completion status Anesthesia document: Postop Eval 1 completed: Yes Anesthesia Postop Eval I Summary Anesthesia Postop Eval I Summary: Anesthesia Postop Eval I: Assessment Summary Airway patent Yes 05/23/25 09:44 [address] FREIGHT BRAKE [email or web address] Spontaneous unlabored Yes 05/23/25 09:[address] FREIGHT BRAKE [email or web address] respirations Mental status Awake,Calm 05/23/25 09:[address] FREIGHT BRAKE [email or web address] nausea No 05/23/25 09:[address] FREIGHT BRAKE [email or web address] Vomiting No 05/23/25 09:[address] FREIGHT BRAKE [email or web address] Anesthesia Postop Eval I: Fluid Summary Crystalloid volume administer 1,200 05/23/25 09:[address] FREIGHT BRAKE [email or web address] (ml) Colloids volume administered ( ml) Blood Product volume administered (ml) Total IV fluid infused 1,200 05/23/25 09:[address] FREIGHT BRAKE [email or web address] Anesthesia Postop Eval I: Summary Notes Anesthesia Complication No 05/23/25 09:[address] FREIGHT BRAKE [email or web address] Anesthesia Complication Comment: Post-operative progress note Anesthesia: Postop Eval II Evaluation Mental status: Awake and Calm Pain Level: 0 nausea: No Vomiting: No
--- NOTE | 2025-05-23 16:41 | PCM.POSTANE2 ---
Anesthesia Postop Eval I Sum Postop Eval Completion status Anesthesia document: Postop Eval 1 completed: Yes Anesthesia Postop Eval I Summary Anesthesia Postop Eval I Summary: Anesthesia Postop Eval I: Assessment Summary Airway patent Yes 05/23/25 09:44 [email or web address] Spontaneous unlabored Yes 05/23/25 09:44 [email or web address] respirations Mental status Awake,Calm 05/23/25 09:44 [email or web address] nausea No 05/23/25 09:44 [email or web address] Vomiting No 05/23/25 09:44 [email or web address] Anesthesia Postop Eval I: Fluid Summary Crystalloid volume administer 1,200 05/23/25 09:44 [email or web address] (ml) Colloids volume administered ( ml) Blood Product volume administered (ml) Total IV fluid infused 1,200 05/23/25 09:44 [email or web address] Anesthesia Postop Eval I: Summary Notes Anesthesia Complication No 05/23/25 09:44 [email or web address] Anesthesia Complication Comment: Post-operative progress note Anesthesia: Postop Eval II Evaluation Mental status: Awake and Calm Pain Level: 0 nausea: No Vomiting: No
[2025-05-23] MEDS: Albuterol 2.5 MG/3 ML VIAL.NEB. INHALATION (19:34)
[2025-05-23] MEDS: Budesonide Respules 0.5 MG/2 ML AMPUL.NEB. INHALATION (19:35)
[2025-05-23] MEDS: Latanoprost 0.005% 1 Bottle 1 DRP LEFT EYE (22:31)
[2025-05-24 02:45] VITALS: BP 136/77; PULSE 76; RESP 18; TEMP 36.4; O2SAT 96
[2025-05-24 06:25] VITALS: BP 135/75; PULSE 76; RESP 16; TEMP 37.1; O2SAT 98
[2025-05-24] MEDS: Budesonide Respules 0.5 MG/2 ML AMPUL.NEB. INHALATION (06:50)
[2025-05-24] MEDS: Albuterol 2.5 MG/3 ML VIAL.NEB. INHALATION (06:50)
[2025-05-24 06:51] VITALS: PULSE 85; RESP 16
--- NOTE | 2025-05-24 07:14 | PCM.PN.GU ---
Subjective Subjective dc miller home after voids Objective Data Objective Data Vital Signs: Vital Signs Temp Pulse Resp BP Pulse Ox O2 Del Method 97.5 F L 85 16 136/77 H 96 Room Air 05/24/25 02:45 05/24/25 06:51 05/24/25 06:51 05/24/25 02:45 05/24/25 02:45 05/24/25 02:45 Oxygen Delivery Method Room Air Weight: 81.193 kg Body Mass Index (BMI) 26.4 Intake & Output: Intake and Output for Last 24 Hours 05/22/25 05/23/25 05/24/25 23:59 23:59 23:59 Intake Total 2467.75 / 2467.75 Output Total 1810 / 1810 2150 / 2150 Balance 657.75 / 657.75 -2150 / -215
--- NOTE | 2025-05-24 08:45 | PHA.DC.MR.R ---
Pharmacy [place] Med Reconciliation Pharmacy Service has performed discharge medication reconciliation for this patient. The patient's discharge medication list was reviewed for discrepancies and discrepancies were resolved. Medications at Discharge Home Medications ascorbic acid (vitamin C) 1,000 mg tablet,extended release (Vitamin C ER) 1,000 mg PO DAILY 05/21/25 budesonide-formoterol HFA 160 mcg-4.5 mcg/actuation aerosol inhaler (Symbicort) 2 puff inhalation BID 05/21/25 latanoprost 0.005 % eye drops 1 drp LEFT EYE QHS 05/21/25 levothyroxine 150 mcg tablet (Synthroid) 150 mcg PO QODAY 05/21/25 levothyroxine 175 mcg tablet (Synthroid) 175 mcg PO QODAY 05/21/25 lisinopril 10 mg-hydrochlorothiazide 12.5 mg tablet 1 tab PO DAILY 05/21/25 pantoprazole 40 mg tablet,delayed release 40 mg PO QHS 05/21/25
[2025-05-24 10:00] VITALS: BP 151/61; PULSE 100; RESP 18; TEMP 36.6; O2SAT 98
== END 2025-05-24 11:52 | disposition home or self-care (01) ==
LOC: SDC 12:36 → MS3 12:36
PROVIDERS: Admitting Provider Urology; PCP Family Medicine Geriatric Medicine; Referring Provider Urology; Visit Provider Urology
PROC: (CPT 52630; principal; 2025-05-23 08:15)
DX: N40.1 Benign prostatic hyperplasia with lower urinary tract symptoms (principal); J43.9 Emphysema, unspecified; N13.8 Other obstructive and reflux uropathy; R39.11 Hesitancy of micturition; R35.1 Nocturia; F17.210 Nicotine dependence, cigarettes, uncomplicated; I10 Essential (primary) hypertension; K21.9 Gastro-esophageal reflux disease without esophagitis; Z79.899 Other long term (current) drug therapy; Z79.51 Long term (current) use of inhaled steroids; R94.31 Abnormal electrocardiogram [ECG] [EKG]
CPT/HCPCS: 52630; 00914; 88305; 93005; 94640; 96361; 96365; 96366; 99221; 99406; G0378; J0744; J2405

== ENCOUNTER → 2025-05-30 | Outpatient (CLI) | payer MEDICARE, SELFPAY ==
[2025-05-30 14:48] LABS: Hematocrit 42.7 % (40-54); Hemoglobin 14.8 g/dL (13.0-16.5); Immature Granulocytes Count 0.040 X10^3/uL (0.0-0.0); Mean Corp Hgb Conc 34.7 g/dL (32-36); Mean Corpuscular Volume 88.2 fL (80-94); Mean Platelet Vol. 9.0 fl (6.2-12.0); NRBC Flagged by Analyzer 0 % (0-5); Platelet Count 222 K/mm3 (150-450); RBC Distribution Width CV 11.9 % (11.6-14.6); RBC Distribution Width SD 38.3 fl (35.1-43.9); Red Blood Count 4.84 M/mm3 (4.6-6.2); White Blood Count 9.5 K/mm3 (4.4-11.0)
[2025-05-30 16:21] LABS: AST(SGOT) 16 U/L (<=37); Alanine Aminotransfer ALT/SGPT 17 U/L (<=46); Albumin, Serum 4.4 g/dL (3.4-4.8); Alkaline Phosphatase 67 U/L (40-129); Anion Gap 13 (5-15); BUN 18 mg/dL (4-19); BUN/Creat Ratio 20.9 RATIO (10-20); Calcium,Total 9.5 mg/dL (7.6-11.0); Carbon Dioxide 24.3 mmol/L (21.0-32.0); Chloride 96 mmol/L (98-108); Globulin 2.6 g/dL (2.2-4.2); Glucose 100 mg/dL (70-99); Potassium 4.3 mmol/L (3.3-5.1)
[2025-05-30 22:22] LABS: Xtra Tube Kwok EXTRA TUBE
== END | disposition home or self-care (01) ==
LOC: POLAB3 14:21
PROVIDERS: PCP Family Medicine Geriatric Medicine; Visit Provider Family Medicine Geriatric Medicine
DX: E03.9 Hypothyroidism, unspecified (principal); I10 Essential (primary) hypertension
CPT/HCPCS: 36415; 80053; 84443; 85025